=== PATIENT | female | born 1985 | race African-American/Black ===

== ENCOUNTER 2016-05-06 18:31 | Emergency (ER) | payer OTHER ==
[2016-05-06 18:38] VITALS: BP 116/77; PULSE 93; RESP 18; TEMP 97
[2016-05-06] MEDS ORDERED: NALOXONE 0.4 MG/ML 1 ML VIAL IV STA (19:09)
[2016-05-06] MEDS ORDERED: SODIUM CHLORIDE 0.9% 1,000 ML IV STA (19:09)
--- NOTE | 2016-05-06 19:11 | ED ---
General Adult HPI - General Chief complaint: Recheck/Abnormal Lab/Rx Stated complaint: UNABLE TO LIFT ARMS OR FEEL AFTER DONATING PLASMA Time Seen by Provider: 05/06/16 18:47 Source: patient, RN notes reviewed Mode of arrival: wheelchair Limitations: no limitations - History of Present Illness Initial comments: Patient is a 31-year-old female with chief complaint of unable to lift bilateral arms after donating plasma today. Patient reports that after she donated plasma she took one [place] and 1 Ativan as she was feeling that she is having a toothache. Patient reports that after she took her Ativan and [place] she fell asleep any praying position at the edge of her bed. Patient reports that she was asleep for approximately 15 minutes. She states that after that she feels that she is unable to lift her arms. She does have a history of that , after an overdose in 2015. Patient states that she's had no other drug or alcohol use. - Related Data Home Medications Medication Instructions Recorded Confirmed Albuterol Inhaler [Ventolin Hfa 1 - 2 puff INHALATION RT-Q6H PRN 12/14/15 Inhaler] Baclofen [Baclofen] 10 mg PO BID 12/14/15 05/06/16 Gabapentin [Gabapentin] 100 mg PO TID 12/14/15 05/06/16 traMADol HCL [Tramadol HCl] 50 mg PO BID 12/14/15 05/06/16 ALPRAZolam [Xanax] 1 mg PO DAILY PRN 05/06/16 05/06/16 HYDROcodone/APAP 5-325MG [[place] 1 tab PO Q6H PRN 05/06/16 05/06/16 5-325] Allergies Allergy/AdvReac Type Severity Reaction Status Date / Time No Known Allergies Allergy Verified 05/06/16 19:15 Review of Systems ROS Statement: Those systems with pertinent positive or pertinent negative responses have been documented in the HPI. ROS Other: All systems not noted in ROS Statement are negative. Past Medical History Past Medical History: Asthma, COPD, GERD/Reflux Additional Past Medical History / Comment(s): over dose coma, respiratory arrest , aspiration into lower respiratory tract, cerebral anoxic injury, rhabdomylosis , hypotension, cardiac arrest, drug overdose, sepsis syndrome. Other HX: low back pain, constipation, emphysema, skin issues at times with rashes/boils. History of Any Multi-Drug Resistant Organisms: None Reported Past Surgical History: Unable to Obtain, Section, Hysterectomy Additional Past Surgical History / Comment(s): 01/27/15 colonoscopy. Past Anesthesia/Blood Transfusion Reactions: No Reported Reaction Past Psychological History: Anxiety, Bipolar, Depression Additional Psychological History / Comment(s): Pt resides with her spouse and 2 children ages 2 and 8 yrs. She is normally independent. Smoking Status: Former smoker Past Alcohol Use History: None Reported Additional Past Alcohol Use History / Comment(s): Spouse states pt began smoking about age 15 yrs and is about 1/2 ppd smoker. She quit smoking 2 years ago. She denies any street drug use. She lives at home with HER-2 children. She is on disability. No animals in the home. Past Drug Use History: None Reported Additional Drug Use History / Comment(s): Spouse denies pt uses any street drugs. Please see above section. - Past Family History Mother Family Medical History: Osteoarthritis (OA) Additional Family Medical History / Comment(s): Mother has recently had total knee replacement. General Exam - General Exam Comments Initial Comments: Patient is a 31-year-old female. Limitations: no limitations General appearance: alert, in no apparent distress Head exam: Present: atraumatic, normocephalic, normal inspection Eye exam: Present: normal appearance, EOMI. Absent: PERRL (Patient's pupils are very pinpoint.), scleral icterus, conjunctival injection, periorbital swelling ENT exam: Present: normal exam, mucous membranes moist Neck exam: Present: normal inspection. Absent: tenderness, meningismus, lymphadenopathy Respiratory exam: Present: normal lung sounds bilaterally. Absent: respiratory distress, wheezes, rales, rhonchi, stridor Cardiovascular Exam: Present: regular rate, normal rhythm, normal heart sounds. Absent: systolic murmur, diastolic murmur, rubs, gallop, clicks GI/Abdominal exam: Present: soft, normal bowel sounds. Absent: distended, tenderness, guarding, rebound, rigid Extremities exam: Present: normal inspection, full ROM, normal capillary refill. Absent: tenderness, pedal edema, joint swelling, calf tenderness Back exam: Present: normal inspection Neurological exam: Present: alert, oriented X3, CN II-XII intact Psychiatric exam: Present: normal affect, normal mood Skin exam: Present: warm, dry, intact, normal color. Absent: rash Course Vital Signs 05/06/16 18:34 Temperature 97.0 F L Pulse Rate 93 Respiratory 18 Rate Blood Pressure 116/77 O2 Sat by Pulse 98 Oximetry Medical Decision Making - Medical Decision Making Patient is a 31-year-old [employer] chief complaint of unable to lift her arms completely. However when patient was instructed as able to visualize that she is able to lift her arms. Patient reports that this all occurred after she took one [place] and 1 Ativan at home. Patient's pupils were extremely pinpoint. She was alert and oriented 3. Patient's mother was originally the patient when I evaluated her. According to nursing staff patient mother got in a fight as patient's mother is convinced that she overdosed her medications. She states that that that is not true. Patient's mother didn't of leaving and patient become extremely irate. Patient was crying and upset that her mother left her. Lab work was initially obtained and patient did not give a urine sample for us. Labwork shows a mild leukocytosis. No other acute changes that we can see at this time. Patient did elope after trying to eat a hold of her mother. Patient removed her IV and left without telling staff. - Lab Data Result diagrams: 05/06/16 19:00 05/06/16 19:00 Lab Results 05/06/16 05/06/16 Range/Units 19:00 19:00 WBC 12.4 H (3.8-10.6) k/uL RBC 5.61 H (3.80-5.40) m/uL Hgb 17.0 H (11.4-16.0) gm/dL Hct 53.9 H (34.0-46.0) % MCV 96.1 (80.0-100.0) fL MCH 30.4 (25.0-35.0) pg MCHC 31.6 (31.0-37.0) g/dL RDW 12.9 (11.5-15.5) % Plt Count 216 (150-450) k/uL Neutrophils % (Manual) 47.0 % Lymphocytes % (Manual) 44.0 % Monocytes % (Manual) 7.0 % Eosinophils % (Manual) 2.0 % Neutrophils # (Manual) 5.8 (1.3-7.7) k/uL Lymphocytes # (Manual) 5.5 H (1.0-4.8) k/uL Monocytes # (Manual) 0.9 (0-1.0) k/uL Eosinophils # (Manual) 0.2 (0-0.7) k/uL Nucleated RBCs 0 (0-0) /100 WBC Manual Slide Review Performed Large Platelets Present RBC Morphology Normal Sodium 142 (137-145) mmol/L Potassium 4.4 (3.5-5.1) mmol/L Chloride 104 (98-107) mmol/L Carbon Dioxide 27 (22-30) mmol/L Anion Gap 11 mmol/L BUN 8 (7-17) mg/dL Creatinine 1.22 H (0.52-1.04) mg/dL Est GFR (MDRD) Af Amer >60 (>60 ml/min/1.73 sqM) Est GFR (MDRD) Non-Af 51 (>60 ml/min/1.73 sqM) Glucose 105 H (74-99) mg/dL Calcium 9.9 (8.4-10.2) mg/dL Total Bilirubin 0.5 (0.2-1.3) mg/dL AST 16 (14-36) U/L ALT 20 (9-52) U/L Alkaline Phosphatase 63 (38-126) U/L Total Protein 7.6 (6.3-8.2) g/dL Albumin 4.4 (3.5-5.0) g/dL Salicylates <1.0 mg/dL Acetaminophen <10.0 ug/mL Serum Alcohol <10 mg/dL Disposition Clinical Impression: Drug intoxication Disposition: Left Against Medical Advice Condition: Stable Time of Disposition: 20:00
[2016-05-06 19:23] LABS: CH 30.2; CHCM 31.5; HCT 53.9 % (34.0-46.0); HDW 2.09; MCH 30.4 pg (25.0-35.0); MCHC 31.6 g/dL (31.0-37.0); MCV 96.1 fL (80.0-100.0); Mean Platelet Volume 8.5; RBC 5.61 m/uL (3.80-5.40); RDW 12.9 % (11.5-15.5); WBC 12.4 k/uL (3.8-10.6); WBC (Perox) 11.51
[2016-05-06 19:32] LABS: ALT 20 U/L (9-52); AST 16 U/L (14-36); Acetaminophen <10.0 ug/mL; Alcohol <10 mg/dL; Alkaline Phosphatase 63 U/L (38-126); Anion Gap 11 mmol/L; Blood Urea Nitrogen 8 mg/dL (7-17); Calcium 9.9 mg/dL (8.4-10.2); Carbon Dioxide 27 mmol/L (22-30); Chloride 104 mmol/L (98-107); Glucose 105 mg/dL (74-99); Non-African American GFR(MDRD) 51 (>60 ml/min/1.73 sqM); Potassium 4.4 mmol/L (3.5-5.1); Salicylate <1.0 mg/dL; Sodium 142 mmol/L (137-145); Total Bilirubin 0.5 mg/dL (0.2-1.3); Total Protein 7.6 g/dL (6.3-8.2)
[2016-05-06 19:34] LABS: Add Differential Manual Differential
[2016-05-06 19:38] LABS: Nucleated Red Blood Cells 0 /100 WBC (0-0); Total Cells Counted 100
[2016-05-06 19:39] LABS: Large Platelets Present; Manual Review Performed; RBC Morphology Normal
[2016-05-07 03:54] LABS: Glucose,Whole Blood 171 mg/dL (75-99)
== END 2016-05-06 20:25 | disposition left against medical advice (07) ==
LOC: EC 18:31
DX: R29.898 Other symptoms and signs involving the musculoskeletal system (principal); T42.4X5A Adverse effect of benzodiazepines, initial encounter; T40.2X5A Adverse effect of other opioids, initial encounter; F41.9 Anxiety disorder, unspecified; Z79.891 Long term (current) use of opiate analgesic; Z79.899 Other long term (current) drug therapy; Z87.891 Personal history of nicotine dependence
CPT/HCPCS: 36415; 80053; 85025; 83520 ×2; 80320; 99284; 96374; 96361; J2310

== ENCOUNTER 2016-08-24 15:52 | Emergency (ER) | payer OTHER ==
[2016-08-24 16:12] VITALS: RESP 18
--- NOTE | 2016-08-24 16:27 | ED ---
General Adult HPI - General Chief complaint: Recheck/Abnormal Lab/Rx Stated complaint: Female Time Seen by Provider: 08/24/16 16:07 Source: patient, RN notes reviewed Mode of arrival: ambulatory Limitations: no limitations - History of Present Illness Initial comments: Patient 31-year-old female who presents emergency room today with a chief complaint of increased burning and tingling sensation with urination over the last 2 days. Patient does admit that she's had a "strange" type feeling over the last 4 days. She does admit that the burning started yesterday. Does admit that she wears a possible STDs she's had recent protected sex. Patient denies any vaginal bleeding or discharge. She denies any other complaints or associated symptoms at this time. Patient denies any recent fever, chills, shortness of breath, chest pain, back pain, abdominal pain, nausea or vomiting, numbness or tingling, hematuria, constipation or diarrhea, headaches or visual changes, or any other complaints. - Related Data Home Medications Medication Instructions Recorded Confirmed traMADol HCL [Tramadol HCl] 50 mg PO BID PRN 12/14/15 08/24/16 Previous Rx's Medication Instructions Recorded Phenazopyridine [Pyridium] 100 mg PO TID 3 Days 08/24/16 Allergies Allergy/AdvReac Type Severity Reaction Status Date / Time No Known Allergies Allergy Verified 08/24/16 16:41 Review of Systems ROS Statement: Those systems with pertinent positive or pertinent negative responses have been documented in the HPI. ROS Other: All systems not noted in ROS Statement are negative. Past Medical History Past Medical History: Asthma, COPD, GERD/Reflux Additional Past Medical History / Comment(s): over dose coma, respiratory arrest , aspiration into lower respiratory tract, cerebral anoxic injury, rhabdomylosis , hypotension, cardiac arrest, drug overdose, sepsis syndrome. Other HX: low back pain, constipation, emphysema, skin issues at times with rashes/boils. History of Any Multi-Drug Resistant Organisms: None Reported Past Surgical History: Section, Hysterectomy Additional Past Surgical History / Comment(s): 01/27/15 colonoscopy. Past Anesthesia/Blood Transfusion Reactions: No Reported Reaction Past Psychological History: Anxiety, Bipolar, Depression Additional Psychological History / Comment(s): Pt resides with her spouse and 2 children ages 2 and 8 yrs. She is normally independent. Smoking Status: Former smoker Past Alcohol Use History: None Reported Additional Past Alcohol Use History / Comment(s): Spouse states pt began smoking about age 15 yrs and is about 1/2 ppd smoker. She quit smoking 2 years ago. She denies any street drug use. She lives at home with HER-2 children. She is on disability. No animals in the home. Past Drug Use History: None Reported Additional Drug Use History / Comment(s): Spouse denies pt uses any street drugs. Please see above section. - Past Family History Mother Family Medical History: Osteoarthritis (OA) Additional Family Medical History / Comment(s): Mother has recently had total knee replacement. General Exam - General Exam Comments Initial Comments: General: The patient is awake and alert, in no distress, and does not appear acutely ill. Eye: Pupils are equal, round and reactive to light, extra-ocular movements are intact. No nystagmus. There is normal conjunctiva bilaterally. No signs of icterus. Ears, nose, mouth and throat: There are moist mucous membranes and no oral lesions. Neck: The neck is supple, there is no tenderness or JVD. Cardiovascular: There is a regular rate and rhythm. No murmur, rub or gallop is appreciated. Respiratory: Lungs are clear to auscultation, respirations are non-labored, breath sounds are equal. No wheezes, stridor, rales, or rhonchi. Gastrointestinal: Soft, non-distended, non-tender abdomen without masses or organomegaly noted. There is no rebound or guarding present. No CVA tenderness. Bowel sounds are unremarkable. Musculoskeletal: Normal ROM, no tenderness. Strength 5/5. Sensation intact. Pulses equal bilaterally 2+. Neurological: A&O x 3. CN II-XII intact, There are no obvious motor or sensory deficits. Coordination appears grossly intact. Speech is normal. Skin: Skin is warm and dry and no rashes or lesions are noted. Psychiatric: Cooperative, appropriate mood & affect, normal judgment. Limitations: no limitations Course Vital Signs 08/24/16 16:08 Temperature 98.5 F Pulse Rate 98 Respiratory 18 Rate Blood Pressure 157/70 O2 Sat by Pulse 100 Oximetry Medical Decision Making - Medical Decision Making This is urinalysis reviewed and shows no sign of infection. She does admit to burning sensation and some dysuria will be started on Pyridium. Was discussed about possible STDs. She does admit that she's had recent unprotected sex. She states was without her . At this time has been is at bedside. Was discussed about possible treatment for STDs. Patient states she plans on following up with the clinic. Exam performed here in the emergency room unremarkable. Cultures are pending. Patient advised that cultures will take 2 days come back. Advised no sexual contacts all symptoms have resolved. Advised follow-up with the clinic or [facility] for further evaluation if symptoms increase or worsen. Patient's declined any prophylactic treatment here in emergency room. Patient does not want to wait for Trichomonas test to come back. States she was be discharged she does need to go to work. - Lab Data Lab Results 08/24/16 08/24/16 Range/Units 16:12 16:12 Urine Color Yellow Urine Appearance Clear (Clear) Urine pH 7.0 (5.0-8.0) Ur Specific [place] 1.017 (1.001-1.035) Urine Protein Negative (Negative) Urine Glucose (UA) Negative (Negative) Urine Ketones Negative (Negative) Urine Blood Negative (Negative) Urine Nitrite Negative (Negative) Urine Bilirubin Negative (Negative) Urine Urobilinogen 2.0 (<2.0) mg/dL Ur Leukocyte Esterase Negative (Negative) Urine HCG, Qual Not Detected (Not Detectd) Disposition Clinical Impression: Dysuria Disposition: HOME SELF-CARE Condition: Stable Instructions: Dysuria (ED) Additional Instructions: Please follow-up with the health clinic as discussed along with [facility] if symptoms persist for further evaluation and testing. Please refrain from any sexual contact until al symptoms have resolved. Please return to emergency room if any symptoms increase worsen or for any other concerns. Prescriptions: Phenazopyridine [Pyridium] 100 mg PO TID 3 Days Referrals: None,Stated [Primary Care Provider] - 1-2 days Time of Disposition: 17:25
[2016-08-24 16:59] LABS: Appearance,Urine Clear (Clear); Bilirubin,Urine Negative (Negative); Glucose,Urine (UA) Negative (Negative); Ketones,Urine Negative (Negative); Leukocyte Esterase,Urine Negative (Negative); Nitrite,Urine Negative (Negative); Protein,Urine Negative (Negative); Specific Gravity,Urine 1.017 (1.001-1.035); UA Billing (MACRO vs. MICRO) CHEM
[2016-08-24 17:28] VITALS: BP 129/77; PULSE 87; TEMP 98
== END 2016-08-24 17:30 | disposition home or self-care (01) ==
LOC: EC 15:52
DX: R30.0 Dysuria (principal); Z87.891 Personal history of nicotine dependence
CPT/HCPCS: 81003; 81025; 87070; 87086; 87205; 87491; 87591; 87808; 99283

== ENCOUNTER 2017-08-19 17:05 | Emergency (ER) | payer OTHER ==
[2017-08-19] MEDS ORDERED: ONDANSETRON 4 MG/2 ML VIAL IVP STA (17:26)
[2017-08-19] MEDS ORDERED: PANTOPRAZOLE 40 MG/10 ML VIAL IVP STA (17:26)
[2017-08-19] MEDS ORDERED: SODIUM CHLORIDE 0.9% 2,000 ML IV STA (17:26)
--- NOTE | 2017-08-19 17:31 | ED ---
General Adult HPI - General Chief complaint: Nausea/Vomiting/Diarrhea Stated complaint: JELLY Time Seen by Provider: 08/19/17 17:19 Source: patient, RN notes reviewed, old records reviewed Mode of arrival: wheelchair Limitations: no limitations - History of Present Illness Initial comments: If complaint and history of present illness a 32-year-old female with complaint of nausea vomiting for 2 days. The patient reports she takes methadone every day for last time she used it is able to keep it down was 3 days ago. She vomited yesterday's dose. No diarrhea. Also sick in the house. Complains of not feeling well sweats with nausea and vomiting. - Related Data Home Medications Medication Instructions Recorded Confirmed traMADol HCL [Tramadol HCl] 50 mg PO BID PRN 12/14/15 08/24/16 Previous Rx's Medication Instructions Recorded Phenazopyridine [Pyridium] 100 mg PO TID 3 Days day 08/24/16 Ondansetron Odt [Zofran Odt] 4 mg PO Q8HR PRN #10 tab 08/19/17 Allergies Allergy/AdvReac Type Severity Reaction Status Date / Time No Known Allergies Allergy Verified 08/24/16 16:41 Review of Systems ROS Statement: Those systems with pertinent positive or pertinent negative responses have been documented in the HPI. Review of systems no complaint of headache or chest pain she has dry states she just anything she vomits rapidly. No blood in the vomit. No diarrhea. No complaint of pain. Patient is on methadone because she had been on [place] for right along. At time after delivering a baby over 4 years ago. Denies other drugs. All systems were reviewed past medical problems significant for COPD, GERD, surgeries include followed by hysterectomy. Family history not respiratory no known ALLERGIES. ROS Other: All systems not noted in ROS Statement are negative. Past Medical History Past Medical History: Asthma, COPD, GERD/Reflux Additional Past Medical History / Comment(s): over dose coma, respiratory arrest , aspiration into lower respiratory tract, cerebral anoxic injury, rhabdomylosis , hypotension, cardiac arrest, drug overdose, sepsis syndrome. Other HX: low back pain, constipation, emphysema, skin issues at times with rashes/boils. History of Any Multi-Drug Resistant Organisms: None Reported Past Surgical History: Section, Hysterectomy Additional Past Surgical History / Comment(s): 01/27/15 colonoscopy. Past Anesthesia/Blood Transfusion Reactions: No Reported Reaction Past Psychological History: Anxiety, Bipolar, Depression Smoking Status: Current every day smoker Past Alcohol Use History: None Reported Past Drug Use History: None Reported - Past Family History Mother Family Medical History: Osteoarthritis (OA) Additional Family Medical History / Comment(s): Mother has recently had total knee replacement. General Exam - General Exam Comments Initial Comments: General: The patient is awake and alert, complaining of nausea and vomiting for 2-1/2 days. Does not take her methadone since 3 days ago. Current vital signs temperature 99.2 pulse 74 respiratory rate 20 pulse ox on percent room air blood pressure 123/82 Ears, nose, mouth and throat: There are moist mucous membranes Neck: The neck is supple, Cardiovascular: There is a regular rate and rhythm. No murmur, rub or gallop is appreciated. Respiratory: Lungs are clear to auscultation, respirations are non-labored, breath sounds are equal. No wheezes, stridor, rales, or rhonchi. Gastrointestinal: No complaint of pain but nausea and vomiting for 2 days. No diarrhea. No blood in the vomit. Back: Denies back pain. Musculoskeletal: No peripheral edema Neurological: Denies any neuro deficits. Denies weakness. Skin: Skin is warm and dry and no rashes or lesions are noted. Psychiatric: Cooperative, Limitations: no limitations Course Vital Signs 08/19/17 17:15 Temperature 99.2 F Pulse Rate 74 Respiratory 20 Rate Blood Pressure 123/82 O2 Sat by Pulse 100 Oximetry Medical Decision Making - Medical Decision Making Medical decision making; to 32-year-old female who has not had her methadone for 3 days because of nausea and vomiting. She did vomit her methadone dose 3 days ago. She takes 50 mg daily and one dose. She receives this from a clinic in [place]. Labs show white count 16.9 hemoglobin 15 hematocrit of 49 with a potassium 3.8. BUN 9 creatinine 0.9 and GFR greater than 90. Glucose 100. Amylase lipase normal limits. The patient was hydrated with 2 L of fluid in emergency room given IV Protonix and Zofran with good results. The patient reports feeling much better now she will be given methadone 40 mg by mouth. She 'll be following up tomorrow with her program. She'll also taking Zofran as needed this evening. Told return emergency room as needed. - Lab Data Result diagrams: 08/19/17 17:38 08/19/17 17:38 Lab Results 08/19/17 08/19/17 Range/Units 17:38 17:38 WBC 16.9 H (3.8-10.6) k/uL RBC 5.34 (3.80-5.40) m/uL Hgb 15.8 (11.4-16.0) gm/dL Hct 49.1 H (34.0-46.0) % MCV 92.0 (80.0-100.0) fL MCH 29.5 (25.0-35.0) pg MCHC 32.1 (31.0-37.0) g/dL RDW 14.2 (11.5-15.5) % Plt Count 220 (150-450) k/uL Neutrophils % 85 % Lymphocytes % 8 % Monocytes % 5 % Eosinophils % 1 % Basophils % 0 % Neutrophils # 14.3 H (1.3-7.7) k/uL Lymphocytes # 1.3 (1.0-4.8) k/uL Monocytes # 0.9 (0-1.0) k/uL Eosinophils # 0.1 (0-0.7) k/uL Basophils # 0.0 (0-0.2) k/uL Sodium 145 (137-145) mmol/L Potassium 3.8 (3.5-5.1) mmol/L Chloride 106 (98-107) mmol/L Carbon Dioxide 27 (22-30) mmol/L Anion Gap 12 mmol/L BUN 9 (7-17) mg/dL Creatinine 0.90 (0.52-1.04) mg/dL Est GFR (CKD-EPI)AfAm >90 (>60 ml/min/1.73 sqM) Est GFR (CKD-EPI)NonAf 85 (>60 ml/min/1.73 sqM) Glucose 100 H (74-99) mg/dL Calcium 9.1 (8.4-10.2) mg/dL Total Bilirubin 0.5 (0.2-1.3) mg/dL AST 31 (14-36) U/L ALT 32 (9-52) U/L Alkaline Phosphatase 90 (38-126) U/L Total Protein 6.2 L (6.3-8.2) g/dL Albumin 3.6 (3.5-5.0) g/dL Amylase 46 (30-110) U/L Lipase 22 L (23-300) U/L Disposition Clinical Impression: Methadone withdrawal Narrative: Follow-up with your methadone clinic tomorrow and your family doctor. Advance your diet fluids and ice in easily digestible food. Use Zofran to control nausea. Return emergency room as needed Disposition: HOME SELF-CARE Condition: Fair Instructions: Acute Nausea and Vomiting (ED) Additional Instructions: Advance diet as directed use Zofran to control nausea vomiting. Follow-up with [facility] tomorrow. Follow-up family physician Prescriptions: Ondansetron Odt [Zofran Odt] 4 mg PO Q8HR PRN #10 tab PRN Reason: Nausea Is patient prescribed a controlled substance at d/c from ED?: No Referrals: Davide Kamara MD [Primary Care Provider] - 1-2 days Time of Disposition: 18:52
[2017-08-19 17:56] LABS: Basophils % (A) 0 %; Eosinophils # (A) 0.1 k/uL (0-0.7); Eosinophils % (A) 1 %; HCT 49.1 % (34.0-46.0); HGB 15.8 gm/dL (11.4-16.0); Lymphocytes # (A) 1.3 k/uL (1.0-4.8); Lymphocytes % (A) 8 %; MCH 29.5 pg (25.0-35.0); MCHC 32.1 g/dL (31.0-37.0); Mean Platelet Volume 8.1; Monocytes # (A) 0.9 k/uL (0-1.0); Monocytes % (A) 5 %; Neutrophils # (A) 14.3 k/uL (1.3-7.7); Neutrophils % (A) 85 %; Platelet Count 220 k/uL (150-450); RBC 5.34 m/uL (3.80-5.40); RDW 14.2 % (11.5-15.5); WBC 16.9 k/uL (3.8-10.6)
[2017-08-19 17:57] LABS: ALT 32 U/L (9-52); AST 31 U/L (14-36); Albumin 3.6 g/dL (3.5-5.0); Alkaline Phosphatase 90 U/L (38-126); Amylase 46 U/L (30-110); Anion Gap 12 mmol/L; Blood Urea Nitrogen 9 mg/dL (7-17); Calcium 9.1 mg/dL (8.4-10.2); Carbon Dioxide 27 mmol/L (22-30); Chloride 106 mmol/L (98-107); Glucose 100 mg/dL (74-99); Lipase 22 U/L (23-300); Potassium 3.8 mmol/L (3.5-5.1); Sodium 145 mmol/L (137-145); Total Bilirubin 0.5 mg/dL (0.2-1.3); Total Protein 6.2 g/dL (6.3-8.2)
[2017-08-19] MEDS ORDERED: METHADONE 10 MG TAB PO STA (18:45)
[2017-08-19 19:02] VITALS: BP 121/63; PULSE 63; RESP 16; TEMP 98.1
== END 2017-08-19 19:08 | disposition home or self-care (01) ==
LOC: EC 17:05
DX: F11.23 Opioid dependence with withdrawal (principal); F17.200 Nicotine dependence, unspecified, uncomplicated; Z86.74 Personal history of sudden cardiac arrest
CPT/HCPCS: 36415; 80053; 82150; 83690; 85025; 99284; 96374; 96375; 96361; J2405; S0109; C9113

== ENCOUNTER 2017-09-14 18:47 | Emergency (ER) | payer OTHER ==
[2017-09-14 19:02] VITALS: BP 149/102; PULSE 116; RESP 20; TEMP 98.8
--- NOTE | 2017-09-14 19:50 | ED ---
Medical Clearance HPI - General Chief complaint: Medical Clearance Stated complaint: Came from [facility] medication Time Seen by Provider: 09/14/17 19:38 Source: patient, RN notes reviewed Mode of arrival: ambulatory - History of Present Illness Initial comments: Patient's a 32-year-old female with no significant past medical history, presenting to the emergency room today in the custody of the [facility]. Patient was going through the intake process today. She admits that something dropped from the crack of her butt. She states it was a half a Percocet and she immediately picked it up putting her mouth and swallowed it. This was witnessed by [facility]. Patient denies any other complaints or symptoms. Patient denies any recent fever, chills, shortness of breath, chest pain, back pain, abdominal pain, nausea or vomiting, numbness or tingling , dysuria or hematuria, constipation or diarrhea, headaches or visual changes, or any other complaints. Home medications: Home Medications Medication Instructions Recorded Confirmed traMADol HCL [Tramadol HCl] 50 mg PO BID PRN 12/14/15 08/24/16 Previous Rx's Medication Instructions Recorded Phenazopyridine [Pyridium] 100 mg PO TID 3 Days day 08/24/16 Ondansetron Odt [Zofran Odt] 4 mg PO Q8HR PRN #10 tab 08/19/17 Allergies/Adverse reactions: Allergies Allergy/AdvReac Type Severity Reaction Status Date / Time No Known Allergies Allergy Verified 09/14/17 19:02 Review of Systems ROS Statement: Those systems with pertinent positive or pertinent negative responses have been documented in the HPI. ROS Other: All systems not noted in ROS Statement are negative. Past Medical History Past Medical History: Asthma, COPD, GERD/Reflux Additional Past Medical History / Comment(s): over dose coma, respiratory arrest , aspiration into lower respiratory tract, cerebral anoxic injury, rhabdomylosis , hypotension, cardiac arrest, drug overdose, sepsis syndrome. Other HX: low back pain, constipation, emphysema, skin issues at times with rashes/boils. History of Any Multi-Drug Resistant Organisms: None Reported Past Surgical History: Section, Hysterectomy Additional Past Surgical History / Comment(s): 01/27/15 colonoscopy. Past Anesthesia/Blood Transfusion Reactions: No Reported Reaction Past Psychological History: Anxiety, Bipolar, Depression Smoking Status: Current every day smoker Past Alcohol Use History: None Reported Past Drug Use History: None Reported - Past Family History Mother Family Medical History: Osteoarthritis (OA) Additional Family Medical History / Comment(s): Mother has recently had total knee replacement. General Exam - General Exam Comments Initial Comments: General: The patient is awake and alert, in no distress, and does not appear acutely ill. Eye: Pupils are equal, round and reactive to light, extra-ocular movements are intact. No nystagmus. There is normal conjunctiva bilaterally. No signs of icterus. Ears, nose, mouth and throat: There are moist mucous membranes and no oral lesions. Neck: The neck is supple, there is no tenderness or JVD. Cardiovascular: There is a regular rate and rhythm. No murmur, rub or gallop is appreciated. Respiratory: Lungs are clear to auscultation, respirations are non-labored, breath sounds are equal. No wheezes, stridor, rales, or rhonchi. Musculoskeletal: Normal ROM, no tenderness. Strength 5/5. Sensation intact. Neurological: A&O x 3. CN II-XII intact, There are no obvious motor or sensory deficits. Coordination appears grossly intact. Speech is normal. Skin: Skin is warm and dry and no rashes or lesions are noted. Limitations: no limitations Course Vital Signs 09/14/17 19:00 Temperature 98.8 F Pulse Rate 116 H Respiratory 20 Rate Blood Pressure 149/102 O2 Sat by Pulse 99 Oximetry Medical Decision Making - Medical Decision Making Patient was brought in by [facility] for an ingestion. Patient states it was a half a Percocet. Patient refusing any treatment here. Nursing staff attempted to get blood pressure patient became irate and screaming and yelling at staff. Unable to repeat vital signs as patient is uncooperative. Did attempt to try to do an x-ray to rule out any sharp or metallic type objects that patient may have ingested as this could cause internal damage to the patient. Patient refusing any x-rays stating that she only took a Percocet patient is alert and oriented. She denies any complaints. She will not cooperate for any x-rays or further evaluation. Patient will be discharged into the custody of the [facility] recommending further observation overnight. Case discussed with attending physician Dr. Freeman. Disposition Clinical Impression: Medical clearance for incarceration Disposition: OTHER INSTITUTION NOT DEFINED Condition: Stable Is patient prescribed a controlled substance at d/c from ED?: No Referrals: Davide Kamara MD [Primary Care Provider] - 1-2 days Time of Disposition: 20:07 (Released to the custody of [facility] ) - Out of Hospital Transfer - Req. Specs Out of Hospital Transfer - Requested Specifics: Other Non-Acute ([facility])
== END 2017-09-14 20:17 | disposition short-term general hospital (02) ==
LOC: EC 18:47
DX: Z02.89 Encounter for other administrative examinations (principal); F17.200 Nicotine dependence, unspecified, uncomplicated
CPT/HCPCS: 99284

== ENCOUNTER 2019-02-15 14:50 | Emergency (ER) | payer OTHER ==
[2019-02-15 15:01] VITALS: BP 126/83; PULSE 109; RESP 22; TEMP 99.4
[2019-02-15] MEDS ORDERED: KETOROLAC 60 MG/2 ML VIAL IM STA (15:18)
[2019-02-15] MEDS ORDERED: PENICILLIN V POTASSIUM 250 MG TAB PO STA (15:18)
--- NOTE | 2019-02-15 15:21 | ED ---
ENT HPI - General Chief complaint: Dental/Oral Stated complaint: Broken tooth Time Seen by Provider: 02/15/19 15:02 Source: patient Mode of arrival: ambulatory Limitations: no limitations - History of Present Illness Initial comments: Patient is a 34-year-old female presenting to emergency Department with complaints of a fractured tooth on her right upper side. Patient states she has a partial retainer that she uses and went to take it out yesterday when her tooth fractured. Patient states she's been having a severe amount of pain. Patient has been trying Tylenol Motrin without relief of symptoms. Patient states she was unable to get into a dentist today and now has to wait until Monday. Patient denies any fever, chills. Patient has no other complaints at this time. Upon arrival to the ER, vital signs are stable. - Related Data Home Medications Medication Instructions Recorded Confirmed traMADol HCL [Tramadol HCl] 50 mg PO BID PRN 12/14/15 08/24/16 Previous Rx's Medication Instructions Recorded Phenazopyridine [Pyridium] 100 mg PO TID 3 Days day 08/24/16 Ondansetron Odt [Zofran Odt] 4 mg PO Q8HR PRN #10 tab 08/19/17 Penicillin V Potassium [Pen Vee K] 500 mg PO QID 7 Days #28 tablet 02/15/19 Allergies Allergy/AdvReac Type Severity Reaction Status Date / Time No Known Allergies Allergy Verified 02/15/19 14:59 Review of Systems ROS Statement: Those systems with pertinent positive or pertinent negative responses have been documented in the HPI. ROS Other: All systems not noted in ROS Statement are negative. Past Medical History Past Medical History: Asthma, COPD, GERD/Reflux Additional Past Medical History / Comment(s): over dose coma, respiratory arrest, aspiration into lower respiratory tract, cerebral anoxic injury, rhabdomylosis, hypotension, cardiac arrest, drug overdose, sepsis syndrome. Other HX: low back pain, constipation, emphysema, skin issues at times with r ashes/boils. History of Any Multi-Drug Resistant Organisms: None Reported Past Surgical History: Section, Hysterectomy Additional Past Surgical History / Comment(s): 01/27/15 colonoscopy. Past Anesthesia/Blood Transfusion Reactions: No Reported Reaction Past Psychological History: Anxiety, Bipolar, Depression Smoking Status: Current every day smoker Past Alcohol Use History: None Reported Past Drug Use History: None Reported - Past Family History Mother Family Medical History: Osteoarthritis (OA) Additional Family Medical History / Comment(s): Mother has recently had total knee replacement. General Exam - General Exam Comments Initial Comments: GENERAL: Well-appearing, well-nourished and in no acute distress. HEAD: Atraumatic, normocephalic. EYES: Pupils equal round and reactive to light, extraocular movements intact, sclera anicteric, conjunctiva are normal. ENT: TMs normal, nares patent, oropharynx clear without exudates. Moist mucous membranes. She has multiple dental caries. Patient has a fractured tooth on the upper right side. Pain with palpation. NECK: Normal range of motion, supple without lymphadenopathy or JVD. LUNGS: Breath sounds clear to auscultation bilaterally and equal. No wheezes rales or rhonchi. HEART: Regular rate and rhythm without murmurs, rubs or gallops. EXTREMITIES: Normal range of motion, no pitting or edema. No clubbing or cyanosis. NEUROLOGICAL: Normal speech, normal gait. PSYCH: Normal mood, normal affect. SKIN: Warm, Dry, normal turgor, no rashes or lesions noted. Limitations: no limitations Course Vital Signs 02/15/19 14:57 Temperature 99.4 F Pulse Rate 109 H Respiratory 22 Rate Blood Pressure 126/83 O2 Sat by Pulse 97 Oximetry Medical Decision Making - Medical Decision Making Patient is a 34-year-old female presenting with a dental fracture and upper rig ht side. Vital signs are stable. Patient is in a severe amount of pain. Patient was unable to get into a dentist today. Patient will be given Toradol as well as a starter pack of Tylenol 3 for pain relief. Patient will also be started on penicillin VK to prevent infection. Patient is stable for discharge at this time and she is in agreement with this plan of care. Patient will follow up with her dentist on Monday morning. Return parameters were discussed with the patient she verbalized understanding. Case discussed with Dr. Batres. Disposition Clinical Impression: Fracture of tooth, Dental caries Disposition: HOME SELF-CARE Condition: Stable Instructions (If sedation given, give patient instructions): Toothache (ED) Additional Instructions: Please return to the Emergency Department if symptoms worsen or any other concerns. Take antibiotic as prescribed. May alternate the Tylenol #3 with Motrin for better pain control. Follow-up with dentist as soon as possible. Prescriptions: Penicillin V Potassium [Pen Vee K] 500 mg PO QID 7 Days #28 tablet Is patient prescribed a controlled substance at d/c from ED?: No Referrals: Davide Kamara MD [Primary Care Provider] - 1-2 days
[2019-02-15] MEDS ORDERED: ACET/COD 300 MG/30 MG STARTER PACK 6 TAB BTL PO STA (15:29)
== END 2019-02-15 15:39 | disposition home or self-care (01) ==
LOC: EC 14:50
DX: S02.5XXA Fracture of tooth (traumatic), initial encounter for closed fracture (principal); K02.9 Dental caries, unspecified; F17.200 Nicotine dependence, unspecified, uncomplicated; Z86.74 Personal history of sudden cardiac arrest; X58.XXXA Exposure to other specified factors, initial encounter
CPT/HCPCS: 96372; 99283

== ENCOUNTER 2019-10-13 10:07 | Emergency (ER) | payer OTHER ==
[2019-10-13 10:40] VITALS: BP 126/89; PULSE 116; RESP 18; TEMP 98.9
[2019-10-13] MEDS ORDERED: CLINDAMYCIN 150 MG CAP PO STA (11:22)
[2019-10-13] MEDS ORDERED: KETOROLAC 60 MG/2 ML VIAL IM STA (11:23)
--- NOTE | 2019-10-13 11:38 | ED ---
ENT HPI - General Chief complaint: Dental/Oral Stated complaint: dental pain Time Seen by Provider: 10/13/19 11:10 Source: patient Mode of arrival: ambulatory Limitations: no limitations - History of Present Illness Initial comments: Patient is a 34-year-old female presenting to emergency Department complaining of right-sided dental pain that started 4 days ago. Patient states she chipped her upper tooth on Monday evening and then went to her dentist first thing the next day. She was started on penicillin as well as Toradol for the discomfort. Patient states over the last 2 days the pain has been increasing and she can no longer to very well on the right side. She denies any fever, chills, nausea, vomiting. She states she tried calling her dentist office today but they were closed and not responding. Patient has no further complaints at this time. Patient denies being at this time. Upon arrival to the ER, patient was tachycardia however she was crying during triage. The rest of her vitals are normal, afebrile. - Related Data Home Medications Medication Instructions Recorded Confirmed traMADol HCL [Tramadol HCl] 50 mg PO BID PRN 12/14/15 08/24/16 Previous Rx's Medication Instructions Recorded Phenazopyridine [Pyridium] 100 mg PO TID 3 Days day 08/24/16 Ondansetron Odt [Zofran Odt] 4 mg PO Q8HR PRN #10 tab 08/19/17 Penicillin V Potassium [Pen Vee K] 500 mg PO QID 7 Days #28 tablet 02/15/19 Clindamycin HCl 300 mg PO Q6HR 7 Days #28 cap 10/13/19 Hydrocodone/Acetaminophen [[place] 1 tab PO Q6HR PRN #10 tab 10/13/19 5-325] Allergies Allergy/AdvReac Type Severity Reaction Status Date / Time No Known Allergies Allergy Verified 10/13/19 10:39 Review of Systems ROS Statement: Those systems with pertinent positive or pertinent negative responses have been documented in the HPI. ROS Other: All systems not noted in ROS Statement are negative. Past Medical History Past Medical History: Asthma, COPD, GERD/Reflux Additional Past Medical History / Comment(s): over dose coma, respiratory arrest, aspiration into lower respiratory tract, cerebral anoxic injury, rha bdomylosis, hypotension, cardiac arrest, drug overdose, sepsis syndrome. Other HX: low back pain, constipation, emphysema, skin issues at times with rashes/boils. History of Any Multi-Drug Resistant Organisms: None Reported Past Surgical History: Section, Hysterectomy Additional Past Surgical History / Comment(s): 01/27/15 colonoscopy. Past Anesthesia/Blood Transfusion Reactions: No Reported Reaction Past Psychological History: Anxiety, Bipolar, Depression Smoking Status: Current every day smoker Past Alcohol Use History: None Reported Past Drug Use History: None Reported - Past Family History Mother Family Medical History: Osteoarthritis (OA) Additional Family Medical History / Comment(s): Mother has recently had total knee replacement. General Exam - General Exam Comments Initial Comments: GENERAL: Patient is well-developed and well-nourished. Patient is nontoxic and in no acute distress, but is crying during exam. HEAD: Atraumatic, normocephalic. EYES: Pupils equal round and reactive to light, extraocular movements intact, sclera anicteric, conjunctiva are normal. Eyelids were unremarkable. ENT: TMs normal, nares patent, oropharynx clear without exudates. Moist mucous membranes. Patient does have a fractured tooth, #6 and also some decay of the adjoining teeth. There is no visible dental abscess seen. There is pain with palpation of the gumline as well as some erythema. NECK: Normal range of motion, supple without lymphadenopathy or JVD. LUNGS: Unlabored respirations. Breath sounds clear to auscultation bilaterally and equal. No wheezes rales or rhonchi. HEART: Regular rate and rhythm without murmurs, rubs or gallops. ABDOMEN: Soft, nontender, normoactive bowel sounds. No guarding, no rebound. No masses appreciated. : Deferred MUSCULOSKELETAL: Normal extremities with adequate strength and normal range of motion, no pitting or edema. No clubbing or cyanosis. NEUROLOGICAL: Normal speech, normal gait. Symmetrical smile. PSYCH: Normal mood, normal affect. SKIN: Warm, Dry, normal turgor, no rashes or lesions noted. Limitations: no limitations Course Vital Signs 10/13/19 10:37 Temperature 98.9 F Pulse Rate 116 H Respiratory 18 Rate Blood Pressure 126/89 O2 Sat by Pulse 97 Oximetry Medical Decision Making - Medical Decision Making Patient is a 34-year-old female here for right-sided dental pain 4 days. She did see her dentist who prescribed her penicillin as well as Toradol the states the pain has been increasing. Her vitals are stable upon arrival, she was crying during the exam. There is no visible dental abscess seen. Patient will be started on clindamycin, given Toradol the ER. I will give her a short prescription for [place] until she can see her dentist. Patient is agreement with this plan of care. She is stable for discharge. Return parameters were discussed with the patient she verbalized understanding. Case discussed with Dr. Navas. Disposition Clinical Impression: Dental caries, Fracture of tooth, Pain, dental Disposition: HOME SELF-CARE Condition: Stable Instructions (If sedation given, give patient instructions): Toothache (ED) Additional Instructions: Please return to the Emergency Department if symptoms worsen or any other concerns. Take antibiotic as prescribed. Follow-up with dentist SB. Prescriptions: Clindamycin HCl 300 mg PO Q6HR 7 Days #28 cap Hydrocodone/Acetaminophen [[place] 5-325] 1 tab PO Q6HR PRN #10 tab PRN Reason: Pain Is patient prescribed a controlled substance at d/c from ED?: Yes When asked, does pt state using other controlled substances?: No If prescribed controlled substance>3 days was MAPS reviewed?: Prescribed <3 Days If opioid is for acute pain is fill amount 7 days or less?: Yes If Rx opioid, was Start Talking consent form obtained?: Yes Referrals: Davide Kamara MD [Primary Care Provider] - 1-2 days
== END 2019-10-13 12:04 | disposition home or self-care (01) ==
LOC: EC 10:07
DX: S02.5XXA Fracture of tooth (traumatic), initial encounter for closed fracture (principal); K02.9 Dental caries, unspecified; F41.9 Anxiety disorder, unspecified; F32.9 Major depressive disorder, single episode, unspecified; M54.5 Low back pain; F17.200 Nicotine dependence, unspecified, uncomplicated; X58.XXXA Exposure to other specified factors, initial encounter
CPT/HCPCS: 99282; 96372; J1885

== ENCOUNTER 2020-01-20 16:53 | Emergency (ER) | payer OTHER ==
[2020-01-20 17:10] VITALS: BP 149/94; PULSE 122; RESP 18; TEMP 97.6
--- NOTE | 2020-01-20 17:41 | ED ---
Recheck HPI - General Chief Complaint: Recheck/Abnormal Lab/Rx Stated Complaint: HIV Test Time Seen by Provider: 01/20/20 17:25 Source: patient, RN notes reviewed Mode of arrival: ambulatory Limitations: no limitations - History of Present Illness Initial Comments: 34-year-old female presents emergency Department chief complaint of wanting HIV testing. Patient states that she received a text from another person stating that she was having intercourse with patient's . Patient states that she was informed the female was positive for HIV.. Patient has no history of a HIV or hepatitis. She denies any IV drug use. - Related Data Home Medications Medication Instructions Recorded Confirmed traMADol HCL [Tramadol HCl] 50 mg PO BID PRN 12/14/15 08/24/16 Previous Rx's Medication Instructions Recorded Phenazopyridine [Pyridium] 100 mg PO TID 3 Days day 08/24/16 Ondansetron Odt [Zofran Odt] 4 mg PO Q8HR PRN #10 tab 08/19/17 Penicillin V Potassium [Pen Vee K] 500 mg PO QID 7 Days #28 tablet 02/15/19 Clindamycin HCl 300 mg PO Q6HR 7 Days #28 cap 10/13/19 Hydrocodone/Acetaminophen [[place] 1 tab PO Q6HR PRN #10 tab 10/13/19 5-325] Allergies Allergy/AdvReac Type Severity Reaction Status Date / Time No Known Allergies Allergy Verified 01/20/20 17:10 Review of Systems ROS Statement: Those systems with pertinent positive or pertinent negative responses have been documented in the HPI. ROS Other: All systems not noted in ROS Statement are negative. Past Medical History Past Medical History: Asthma, COPD, GERD/Reflux Additional Past Medical History / Comment(s): over dose coma, respiratory arrest, aspiration into lower respiratory tract, cerebral anoxic injury, rhabdomylosis, hypotension, cardiac arrest, drug overdose, sepsis syndrome. Other HX: low back pain, constipation, emphysema, skin issues at times with rashes/boils. History of Any Multi-Drug Resistant Organisms: None Reported Past Surgical History: Section, Hysterectomy Additional Past Surgical History / Comment(s): 01/27/15 colonoscopy. Past Anesthesia/Blood Transfusion Reactions: No Reported Reaction Past Psychological History: Anxiety, Bipolar, Depression Smoking Status: Current every day smoker Past Alcohol Use History: None Reported Past Drug Use History: None Reported - Past Family History Mother Family Medical History: Osteoarthritis (OA) Additional Family Medical History / Comment(s): Mother has recently had total knee replacement. General Exam Limitations: no limitations General appearance: alert, in no apparent distress Head exam: Present: atraumatic, normocephalic, normal inspection Respiratory exam: Present: normal lung sounds bilaterally. Absent: respiratory distress, wheezes, rales, rhonchi, stridor Cardiovascular Exam: Present: regular rate, normal rhythm, normal heart sounds. Absent: systolic murmur, diastolic murmur, rubs, gallop, clicks Course Vital Signs 01/20/20 17:08 Temperature 97.6 F Pulse Rate 122 H Respiratory 18 Rate Blood Pressure 149/94 O2 Sat by Pulse 100 Oximetry Medical Decision Making - Medical Decision Making HIV testing was ordered patient will follow-up with the results. Patient requested no other testing. Disposition Clinical Impression: Encounter for HIV (human immunodeficiency virus) test Disposition: HOME SELF-CARE Condition: Stable Instructions (If sedation given, give patient instructions): HIV Transmission (ED) Additional Instructions: Please return to the Emergency Department if symptoms worsen or any other concerns. Is patient prescribed a controlled substance at d/c from ED?: No Referrals: Davide Kamara MD [Primary Care Provider] - 1-2 days Time of Disposition: 17:41
[2020-01-21 02:40] LABS: HIV 2 AB Non-Reactive (Non-Reactive); HIV AB P24 Non-Reactive (Non-Reactive); HIV P24 AG Non-Reactive (Non-Reactive)
== END 2020-01-20 18:24 | disposition home or self-care (01) ==
LOC: EC 16:53
DX: Z11.4 Encounter for screening for human immunodeficiency virus [HIV] (principal); M54.5 Low back pain; F41.9 Anxiety disorder, unspecified; F32.9 Major depressive disorder, single episode, unspecified; F17.200 Nicotine dependence, unspecified, uncomplicated
CPT/HCPCS: 36415; 87390; 99283

== ENCOUNTER 2021-08-16 06:12 | Emergency (ER) | payer OTHER ==
[2021-08-16 06:27] VITALS: BP 138/81; PULSE 90; RESP 19; TEMP 98.1
--- NOTE | 2021-08-16 07:08 | ED ---
General Adult HPI - General Chief complaint: Recheck/Abnormal Lab/Rx Stated complaint: Flu-like symptoms Time Seen by Provider: 08/16/21 06:33 Source: patient, RN notes reviewed Mode of arrival: ambulatory Limitations: no limitations - History of Present Illness Initial comments: This a 36-year-old female presents emergency Department with chief complaint of needing medication. Patient is on daily left thumb states her normal doses 120 mg. She does have via [facility] [place] and doses daily. Patient states that her sister unexpectedly which she did have arrangement for dosing in [place]. She states that she received his flu back late Monday in which she missed her dosing for Monday and was closed yesterday. Patient states she is with drawing. She states when she goes back tomorrow she is restarted 30 mg because she missed more than 2 days. Patient denies any other associated complaints. Patient states she does have nausea, diarrhea, withdrawal symptoms. - Related Data Home Medications Medication Instructions Recorded Confirmed traMADol HCL [Tramadol HCl] 50 mg PO BID PRN 12/14/15 08/24/16 Previous Rx's Medication Instructions Recorded Phenazopyridine [Pyridium] 100 mg PO TID 3 Days day 08/24/16 Ondansetron Odt [Zofran Odt] 4 mg PO Q8HR PRN #10 tab 08/19/17 Penicillin V Potassium [Pen Vee K] 500 mg PO QID 7 Days #28 tablet 02/15/19 Clindamycin HCl 300 mg PO Q6HR 7 Days #28 cap 10/13/19 Hydrocodone/Acetaminophen [[place] 1 tab PO Q6HR PRN #10 tab 10/13/19 5-325] Allergies Allergy/AdvReac Type Severity Reaction Status Date / Time No Known Allergies Allergy Verified 08/16/21 06:27 Review of Systems ROS Statement: Those systems with pertinent positive or pertinent negative responses have been documented in the HPI. ROS Other: All systems not noted in ROS Statement are negative. Past Medical History Past Medical History: Asthma, COPD, GERD/Reflux Additional Past Medical History / Comment(s): over dose coma, respiratory arrest, aspiration into lower respiratory tract, cerebral anoxic injury, rhabdomylosis, hypotension, cardiac arrest, drug overdose, sepsis syndrome. Other HX: low back pain, constipation, emphysema, skin issues at times with rashes/boils. History of Any Multi-Drug Resistant Organisms: None Reported Past Surgical History: Section, Hysterectomy Additional Past Surgical History / Comment(s): 01/27/15 colonoscopy. Past Anesthesia/Blood Transfusion Reactions: No Reported Reaction Past Psychological History: Anxiety, Bipolar, Depression Smoking Status: Current every day smoker Past Alcohol Use History: None Reported Past Drug Use History: Methamphetamine - Past Family History Mother Family Medical History: Osteoarthritis (OA) Additional Family Medical History / Comment(s): Mother has recently had total knee replacement. General Exam General appearance: alert, in no apparent distress Head exam: Present: atraumatic, normocephalic, normal inspection Eye exam: Present: normal appearance, PERRL, EOMI. Absent: scleral icterus, conjunctival injection, periorbital swelling ENT exam: Present: normal exam, normal oropharynx, mucous membranes moist Neck exam: Present: normal inspection, full ROM. Absent: tenderness, meningismus, lymphadenopathy Respiratory exam: Present: normal lung sounds bilaterally. Absent: respiratory distress, wheezes, rales, rhonchi, stridor Cardiovascular Exam: Present: regular rate, normal rhythm, normal heart sounds. Absent: systolic murmur, diastolic murmur, rubs, gallop, clicks Course Vital Signs 08/16/21 06:23 Temperature 98.1 F Pulse Rate 90 Respiratory 19 Rate Blood Pressure 138/81 O2 Sat by Pulse 100 Oximetry Medical Decision Making - Medical Decision Making Patient be given 15 mg dose. Patient will follow-up with her scheduled time tomorrow she is return for any worsening change in symptoms. Disposition Clinical Impression: Methadone maintenance therapy patient, Methadone withdrawal Disposition: HOME SELF-CARE Condition: Stable Instructions (If sedation given, give patient instructions): Methadone (By mouth) Additional Instructions: Please return to the Emergency Department if symptoms worsen or any other concerns. Is patient prescribed a controlled substance at d/c from ED?: No Referrals: None,Stated [Primary Care Provider] - 1-2 days Time of Disposition: 07:08
[2021-08-16] MEDS ORDERED: METHADONE 5 MG TAB PO ONE (07:30)
== END 2021-08-16 07:38 | disposition home or self-care (01) ==
LOC: EC 06:12
DX: F11.23 Opioid dependence with withdrawal (principal); J43.9 Emphysema, unspecified; K21.9 Gastro-esophageal reflux disease without esophagitis; F17.200 Nicotine dependence, unspecified, uncomplicated; F31.9 Bipolar disorder, unspecified; F41.9 Anxiety disorder, unspecified; Z79.899 Other long term (current) drug therapy
CPT/HCPCS: 99283; S0109

== ENCOUNTER 2023-06-10 15:57 | Emergency (ER) | payer OTHER ==
--- NOTE | 2023-06-10 16:42 | ED ---
General Adult HPI - General Chief complaint: Nausea/Vomiting/Diarrhea Stated complaint: flu symptoms Time Seen by Provider: 06/10/23 16:27 Source: patient Mode of arrival: ambulatory Limitations: no limitations - History of Present Illness Initial comments: This patient is a 38-year-old woman who states that she is methadone maintenance therapy (75mg/day) for opioid addiction, and complains of having nausea, vomiting, diarrhea. She is also having bodyaches. The patient states that due to transportation issues, she has not been able to get to the clinic for 2 days now. She states that she is having withdrawal symptoms that include nausea, vomiting, diarrhea, sweats, body aches. She has not noted fevers. She has not had hematemesis or bloody/dark tarry stools. Onset/Timin -: days(s) Consistency: constant Improves with: none Worsens with: none Associated Symptoms: malaise Treatments Prior to Arrival: none - Related Data Home Medications Medication Instructions Recorded Confirmed traMADol HCL [Tramadol HCl] 50 mg PO BID PRN 12/14/15 08/24/16 Previous Rx's Medication Instructions Recorded Phenazopyridine [Pyridium] 100 mg PO TID 3 Days day 08/24/16 Ondansetron Odt [Zofran Odt] 4 mg PO Q8HR PRN #10 tab 08/19/17 Penicillin V Potassium [Pen Vee K] 500 mg PO QID 7 Days #28 tablet 02/15/19 Hydrocodone/Acetaminophen [[employer] 1 tab PO Q6HR PRN #10 tab 10/13/19 5-325] clindamycin HCL [Clindamycin HCl] 300 mg PO Q6HR 7 Days #28 cap 10/13/19 Allergies Allergy/AdvReac Type Severity Reaction Status Date / Time No Known Allergies Allergy Verified 08/16/21 06:27 Review of Systems ROS Statement: Those systems with pertinent positive or pertinent negative responses have been documented in the HPI. ROS Other: All systems not noted in ROS Statement are negative. Constitutional: Denies: fever, chills, weakness Respiratory: Denies: cough, dyspnea Cardiovascular: Denies: chest pain, palpitations Gastrointestinal: Reports: nausea, vomiting, diarrhea. Denies: hematemesis, melena, hematochezia Genitourinary: Denies: dysuria, hematuria Musculoskeletal: Reports: myalgia. Denies: back pain Skin: Denies: rash Neurological: Denies: headache, weakness Psychiatric: Denies: suicidal thoughts Past Medical History Past Medical History: Asthma, COPD, GERD/Reflux Additional Past Medical History / Comment(s): over dose coma, respiratory arrest, aspiration into lower respiratory tract, cerebral anoxic injury, rhabdomylosis, hypotension, cardiac arrest, drug overdose, sepsis syndrome. Other HX: low back pain, constipation, emphysema, skin issues at times with rashes/boils. History of Any Multi-Drug Resistant Organisms: None Reported Past Surgical History: Section, Hysterectomy Additional Past Surgical History / Comment(s): 01/27/15 colonoscopy. Past Anesthesia/Blood Transfusion Reactions: No Reported Reaction Past Psychological History: Anxiety, Bipolar, Depression Smoking Status: Current every day smoker Past Alcohol Use History: None Reported Past Drug Use History: Methamphetamine - Past Family History Mother Family Medical History: Osteoarthritis (OA) Additional Family Medical History / Comment(s): Mother has recently had total knee replacement. General Exam Limitations: no limitations General appearance: alert, in no apparent distress Head exam: Present: atraumatic, normocephalic Eye exam: Present: normal appearance. Absent: scleral icterus, conjunctival injection Neck exam: Present: normal inspection Respiratory exam: Present: normal lung sounds bilaterally. Absent: respiratory distress, wheezes, rales, rhonchi, stridor Cardiovascular Exam: Present: regular rate, normal rhythm, normal heart sounds. Absent: systolic murmur, diastolic murmur, rubs, gallop GI/Abdominal exam: Present: soft. Absent: distended, tenderness, guarding, rebound, rigid, mass Extremities exam: Present: normal inspection, normal capillary refill. Absent: pedal edema, calf tenderness Back exam: Present: normal inspection. Absent: CVA tenderness (R), CVA tenderness (L) Neurological exam: Present: alert Skin exam: Present: warm, intact, normal color, diaphoretic. Absent: rash Course Vital Signs 06/10/23 06/10/23 16:23 18:34 Temperature 98.4 F Pulse Rate 120 H 78 Respiratory 16 20 Rate Blood Pressure 138/81 136/87 O2 Sat by Pulse 99 99 Oximetry Medical Decision Making - Medical Decision Making Was pt. sent in by a medical professional or institution (, PA, GALLERY HOST, urgent care, hospital, or fdc...) When possible be specific @ -[No] Did you speak to anyone other than the patient for history (EMS, parent, family, police, friend...)? What history was obtained from this source @ -[No] Did you review nursing and triage notes (agree or disagree)? Why? @ -[I reviewed and agree with nursing and triage notes] Were old charts reviewed (outside hosp., previous admission, EMS record, old EKG, old radiological studies, urgent care reports/EKG's, fdc records)? Report findings @ -[No old charts were reviewed] Differential Diagnosis (chest pain, altered mental status, abdominal pain women, abdominal pain men, vaginal bleeding, weakness, fever, dyspnea, syncope, headache, dizziness, GI bleed, back pain, seizure, CVA, palpatations, mental health, musculoskeletal)? @ -[Acute opioid withdrawal versus acute gastroenteritis EKG interpreted by me (3pts min.). @ -[ X-rays interpreted by me (1pt min.). @ -[None done] CT interpreted by me (1pt min.). @ -[None done] U/S interpreted by me (1pt. min.). @ -[None done] What testing was considered but not performed or refused? (CT, X-rays, U/S, labs)? Why? @ -[None] What meds were considered but not given or refused? Why? @ -[None] Did you discuss the management of the patient with other professionals (professionals i.e. , PA, GALLERY HOST, lab, RT, psych nurse, foster care social worker, sampler first, teacher, military police officer, case work aide)? Give summary @ -[No] Was smoking cessation discussed for >3mins.? @ -[No] Was critical care preformed (if so, how long)? @ -[No] Were there social determinants of health that impacted care today? How? (Homelessness, low income, unemployed, alcoholism, drug addiction, transportation, low edu. Level, literacy, decrease access to med. care, halfway, rehab)? @ -[No] Was there de-escalation of care discussed even if they declined (Discuss DNR or withdrawal of care, Hospice)? DNR status @ -[No] What co-morbidities impacted this encounter? (DM, HTN, Smoking, COPD, CAD, Cancer, CVA, ARF, Chemo, Hep., AIDS, mental health diagnosis, sleep apnea, morbid obesity)? @ -[None] Was patient admitted / discharged? Hospital course, mention meds given and route, prescriptions, significant lab abnormalities, going to OR and other pertinent info. @ -Patient is a 38-year-old woman who has missed 2 days of her methadone maintenance treatment. The patient is given a dose of methadone here. She is feeling better will have the patient follow-up with her methadone clinic Undiagnosed new problem with uncertain prognosis? @ -[No] Drug Therapy requiring intensive monitoring for toxicity (Heparin, Nitro, Insulin, Cardizem)? @ -[No] Were any procedures done? @ -[No] Diagnosis/symptom? @ -[Acute opioid withdrawal Acute, or Chronic, or Acute on Chronic? @ -[Acute Uncomplicated (without systemic symptoms) or Complicated (systemic symptoms)? @ -[Uncomplicated Side effects of treatment? @ -[No] Exacerbation, Progression, or Severe Exacerbation? @ -[No] Poses a threat to life or bodily function? How? (Chest pain, [place], [place], pneumonia, PE, COPD, DKA, ARF, appy, cholecystitis, CVA, Diverticulitis, Homicidal, Suicidal, threat to staff... and all critical care pts) @ -[No] - Lab Data Lab Results 06/10/23 Range/Units 16:59 Influenza Type A (PCR) Not Detected (Not Detectd) Influenza Type B (PCR) Not Detected (Not Detectd) RSV (PCR) Not Detected (Not Detectd) SARS-CoV-2 (PCR) Not Detected (Not Detectd) Disposition Clinical Impression: Opioid withdrawal Disposition: HOME SELF-CARE Condition: Good Instructions (If sedation given, give patient instructions): Opioid Withdrawal (ED) Is patient prescribed a controlled substance at d/c from ED?: No Referrals: Davide Kamara MD [Primary Care Provider] - 1-2 days
[2023-06-10 16:45] VITALS: TEMP 98.4
[2023-06-10] MEDS: ONDANSETRON ODT 4 MG TAB PO STA (17:01)
[2023-06-10] MEDS: METHADONE 10 MG TAB PO STA (18:25)
[2023-06-10 18:54] VITALS: BP 136/87; PULSE 78; RESP 20
== END 2023-06-10 18:36 | disposition home or self-care (01) ==
LOC: EC 15:57
DX: F11.23 Opioid dependence with withdrawal (principal); F17.200 Nicotine dependence, unspecified, uncomplicated; F15.90 Other stimulant use, unspecified, uncomplicated
CPT/HCPCS: 87636; 99284; S0109

== ENCOUNTER 2023-09-10 16:04 | Emergency (ER) | payer OTHER ==
[2023-09-10 16:18] VITALS: BP 130/91; PULSE 71; RESP 22; TEMP 97.9
--- NOTE | 2023-09-10 16:46 | ED ---
General Adult HPI - General Chief complaint: Nausea/Vomiting/Diarrhea Stated complaint: NVD Time Seen by Provider: 09/10/23 16:28 Source: patient, RN notes reviewed, old records reviewed Mode of arrival: ambulatory Limitations: no limitations - History of Present Illness Initial comments: Patient is a 38-year-old female who presents emergency department complaining of missing doses of her methadone. States that she has missed 3 days of her methadone. Typically takes 70 mg/day from [facility]. States she was having transportation issues if she does not have a ride there and depends on others. Was feeling fine until today when she began experiencing some withdrawal-like symptoms. These consisted of nausea, 1 or 2 episodes of diarrhea. Intermittent hot and cold flashes. Some generalized bodyaches as well. No abdominal pain or chest pain. No shortness of breath. Presents for further evaluation at this time. - Related Data Home Medications Medication Instructions Recorded Confirmed traMADol HCL [Tramadol HCl] 50 mg PO BID PRN 12/14/15 08/24/16 Previous Rx's Medication Instructions Recorded Phenazopyridine [Pyridium] 100 mg PO TID 3 Days day 08/24/16 Ondansetron Odt [Zofran Odt] 4 mg PO Q8HR PRN #10 tab 08/19/17 Penicillin V Potassium [Pen Vee K] 500 mg PO QID 7 Days #28 tablet 02/15/19 Hydrocodone/Acetaminophen [[place] 1 tab PO Q6HR PRN #10 tab 10/13/19 5-325] clindamycin HCL [Clindamycin HCl] 300 mg PO Q6HR 7 Days #28 cap 10/13/19 Allergies Allergy/AdvReac Type Severity Reaction Status Date / Time No Known Allergies Allergy Verified 09/10/23 16:18 Review of Systems ROS Statement: Those systems with pertinent positive or pertinent negative responses have been documented in the HPI. Review of Systems: CONST: Denies fever EYES: Denies blurry vision ENT: Denies nasal congestion C/V: Denies Chest pain RESP: Denies shortness of breath GI: Denies abdominal pain : Denies dysuria SKIN: Denies rash. MSK: Endorses mild bodyaches NEURO: Denies headache ROS Other: All systems not noted in ROS Statement are negative. Past Medical History Past Medical History: Asthma, COPD, GERD/Reflux Additional Past Medical History / Comment(s): over dose coma, respiratory arrest, aspiration into lower respiratory tract, cerebral anoxic injury, rhabdomylosis, hypotension, cardiac arrest, drug overdose, sepsis syndrome. Other HX: low back pain, constipation, emphysema, skin issues at times with rashes/boils. History of Any Multi-Drug Resistant Organisms: None Reported Past Surgical History: Section, Hysterectomy Additional Past Surgical History / Comment(s): 01/27/15 colonoscopy. Past Anesthesia/Blood Transfusion Reactions: No Reported Reaction Past Psychological History: Anxiety, Bipolar, Depression Smoking Status: Current every day smoker Past Alcohol Use History: None Reported Past Drug Use History: Methamphetamine - Past Family History Mother Family Medical History: Osteoarthritis (OA) Additional Family Medical History / Comment(s): Mother has recently had total knee replacement. General Exam - General Exam Comments Initial Comments: General: Appears in no acute distress. HEAD: Normal with no signs of head trauma. EYES: PERRLA, EOMI, conjunctiva normal, no discharge. ENT: Hearing grossly intact, normal oropharynx. Moist mucous membranes. RESPIRATORY: Clear breath sounds bilaterally. No wheezes, rales, or rhonchi. C/V: Regular rate and rhythm. S1 and S2 auscultated, no edema, peripheral pulses 2+ and intact throughout ABD: Abd is soft, nontender, nondistended EXT: Normal range of motion, no obvious deformity SKIN: No rashes or lesions observed on exposed skin. NEURO: Alert and oriented x 4. Limitations: no limitations Course Vital Signs 09/10/23 16:15 Temperature 97.9 F Pulse Rate 71 Respiratory 22 Rate Blood Pressure 130/91 O2 Sat by Pulse 99 Oximetry Medical Decision Making - Medical Decision Making Was pt. sent in by a medical professional or institution (, PA, J2EE ENGINEER, urgent care, hospital, or custodial...) When possible be specific @ -No Did you speak to anyone other than the patient for history (EMS, parent, family, police, friend...)? What history was obtained from this source @ -No Did you review nursing and triage notes (agree or disagree)? Why? @ -I reviewed and agree with nursing and triage notes Were old charts reviewed (outside hosp., previous admission, EMS record, old EKG, old radiological studies, urgent care reports/EKG's, custodial records)? Report findings @ -No old charts were reviewed Differential Diagnosis (chest pain, altered mental status, abdominal pain women, abdominal pain men, vaginal bleeding, weakness, fever, dyspnea, syncope, headache, dizziness, GI bleed, back pain, seizure, CVA, palpatations, mental health, musculoskeletal)? @ -Opiate use disorder, methadone withdrawal, nausea and vomiting. This list is not all inclusive. EKG interpreted by me (3pts min.). @ -None done X-rays interpreted by me (1pt min.). @ -None done CT interpreted by me (1pt min.). @ -None done U/S interpreted by me (1pt. min.). @ -None done What testing was considered but not performed or refused? (CT, X-rays, U/S, labs)? Why? @ -Offered obtaining basic labs and administering IV fluids but patient declines at this time. Would like to leave after medication as she believes this is likely the source of her symptoms which I agree with. What meds were considered but not given or refused? Why? @ -None Did you discuss the management of the patient with other professionals (professionals i.e. , PA, J2EE ENGINEER, lab, RT, psych nurse, nephrology social worker, deputy brand inspector, teacher, custody officer, case management social worker)? Give summary @ -No Was smoking cessation discussed for >3mins.? @ -No Was critical care preformed (if so, how long)? @ -No Were there social determinants of health that impacted care today? How? (Homelessness, low income, unemployed, alcoholism, drug addiction, transportation, low edu. Level, literacy, decrease access to med. care, long-term, rehab)? @ -No Was there de-escalation of care discussed even if they declined (Discuss DNR or withdrawal of care, Hospice)? DNR status @ -No What co-morbidities impacted this encounter? (DM, HTN, Smoking, COPD, CAD, Cancer, CVA, ARF, Chemo, Hep., AIDS, mental health diagnosis, sleep apnea, morbid obesity)? @ -None Was patient admitted / discharged? Hospital course, mention meds given and route, prescriptions, significant lab abnormalities, going to OR and other pertinent info. @ -Based on the patient's presentation and physical exam, presents for methadone withdrawal symptoms. Has missed 3 doses of her methadone. This is due to transportation issues. Believe she does have good transportation to follow-up tomorrow at [facility] for normal dosing of methadone which is 70 mg daily. Has some mild withdrawal symptoms. Vital signs currently within acceptable limits. Does not appear overly dehydrated. Exam unremarkable. I did offer starting an IV with IV fluids and medications in addition to basic labs however patient declines as she has mild symptoms at this time and would like her dose to go home. I did recommend strict return precautions. She will be given a starter pack of Zofran. Patient in agreement this plan. I will provide the patient with a prescription for ODT Zofran starter pack. I instructed the patient to follow up with their PCP in the next 1-3 days.. I explained that the patient should return to the emergency department if they experience any worsening symptoms. Strict return precautions were discussed with the patient. The patient expressed understanding of these instructions. I answered all questions that the patient had. The patient was discharged home in good condition with their prescriptions and follow up information. Undiagnosed new problem with uncertain prognosis? @ -No Drug Therapy requiring intensive monitoring for toxicity (Heparin, Nitro, Insulin, Cardizem)? @ -No Were any procedures done? @ -No Diagnosis/symptom? @ -opiate withdrawal symptoms, history of opiate use disorder,Methadone dependence, opiate withdrawals Acute, or Chronic, or Acute on Chronic? @ -Acute Uncomplicated (without systemic symptoms) or Complicated (systemic symptoms)? @ -Complicated Side effects of treatment? @ -No Exacerbation, Progression, or Severe Exacerbation? @ -No Poses a threat to life or bodily function? How? (Chest pain, [place], [place], pneumonia, PE, COPD, DKA, ARF, appy, cholecystitis, CVA, Diverticulitis, Homicidal, Suicidal, threat to staff... and all critical care pts) @ -Unlikely Disposition Clinical Impression: Methadone dependence, Opiate withdrawal Disposition: HOME SELF-CARE Condition: Good Instructions (If sedation given, give patient instructions): Opioid Withdrawal (ED) Is patient prescribed a controlled substance at d/c from ED?: No Referrals: None,Stated [Primary Care Provider] - 1-2 days Forms: Area PCPs Time of Disposition: 16:46
[2023-09-10] MEDS: METHADONE 10 MG TAB PO STA (16:47)
[2023-09-10] MEDS: ONDANSETRON 4 MG ODT STARTER PACK 2 TAB BTL PO STA (16:48)
== END 2023-09-10 16:52 | disposition home or self-care (01) ==
LOC: EC 16:04
DX: F11.23 Opioid dependence with withdrawal (principal); F17.200 Nicotine dependence, unspecified, uncomplicated
CPT/HCPCS: 99283; S0109; S0119

== ENCOUNTER 2023-10-03 15:16 | Emergency (ER) | payer OTHER ==
[2023-10-03 15:36] VITALS: RESP 18
[2023-10-03] MEDS ORDERED: ONDANSETRON ODT 4 MG TAB PO STA (15:36)
[2023-10-03] MEDS ORDERED: SODIUM CHLORIDE 0.9% 1,000 ML IV STA (15:37)
[2023-10-03] MEDS ORDERED: ONDANSETRON 4 MG/2 ML VIAL IVP STA (15:37)
--- NOTE | 2023-10-03 15:44 | ED ---
General Adult HPI - General Source: patient, RN notes reviewed Mode of arrival: ambulatory Limitations: no limitations <Anni Palencia - Last Filed: 10/03/23 15:37> - General Source: patient, RN/MD (Pharmacy), RN notes reviewed Mode of arrival: ambulatory Limitations: no limitations <Carlos Batres - Last Filed: 10/03/23 16:20> - General Chief complaint: Nausea/Vomiting/Diarrhea Stated complaint: Vomiting Time Seen by Provider: 10/03/23 15:40 - History of Present Illness Initial comments: Quick Note: This is a 38-year-old female who presents to the emergency department for methadone withdrawals. Patient is currently on 70 mg of methadone and receives this through the program at [facility]. Her last dose was 2 days ago. States that there is confusion with the transportation company and they were unable to pick her up to take her to receive her medication. She now feels like she is going through withdrawals because she has been nauseous and vomiting. She was told to come to the emergency department when going through withdrawals to receive a dose of methadone. (Anni Palencia) Patient is a 38-year-old female presenting to the emergency department with concerns for withdrawal. Patient last had her methadone 2 days ago. Patient is on methadone through [facility] secondary to history of opioid abuse. Patient states she is feeling fatigued and achy. Patient also has some nausea. Patient states she has not received it in 2 days secondary to problems with transportation. Normally patient has to go to [facility] to get methadone. (Carlos Batres) - Related Data Home Medications Medication Instructions Recorded Confirmed Methadone HCl [Methadone Intensol] 70 mg PO DAILY 10/03/23 10/03/23 Allergies Allergy/AdvReac Type Severity Reaction Status Date / Time No Known Allergies Allergy Verified 10/03/23 16:16 Review of Systems ROS Other: All systems not noted in ROS Statement are negative. <Anni Palencia - Last Filed: 10/03/23 15:37> ROS Other: All systems not noted in ROS Statement are negative. Constitutional: Reports: chills. Denies: fever Eyes: Denies: eye pain ENT: Denies: ear pain Respiratory: Denies: dyspnea Cardiovascular: Denies: chest pain Endocrine: Reports: fatigue Gastrointestinal: Reports: nausea. Denies: abdominal pain <Carlos Batres - Last Filed: 10/03/23 16:20> ROS Statement: Those systems with pertinent positive or pertinent negative responses have been documented in the HPI. Past Medical History Past Medical History: Asthma, COPD, GERD/Reflux Additional Past Medical History / Comment(s): over dose coma, respiratory arrest, aspiration into lower respiratory tract, cerebral anoxic injury, rhabdomylosis, hypotension, cardiac arrest, drug overdose, sepsis syndrome. Other HX: low back pain, constipation, emphysema, skin issues at times with rashes/boils. History of Any Multi-Drug Resistant Organisms: None Reported Past Surgical History: Section, Hysterectomy Additional Past Surgical History / Comment(s): 01/27/15 colonoscopy. Past Anesthesia/Blood Transfusion Reactions: No Reported Reaction Past Psychological History: Anxiety, Bipolar, Depression Smoking Status: Current every day smoker Past Alcohol Use History: None Reported Past Drug Use History: Methamphetamine - Past Family History Mother Family Medical History: Osteoarthritis (OA) Additional Family Medical History / Comment(s): Mother has recently had total knee replacement. <Anni Palencia - Last Filed: 10/03/23 15:37> General Exam Limitations: no limitations <Anni Palencia - Last Filed: 10/03/23 15:37> Limitations: no limitations General appearance: alert, in no apparent distress Head exam: Present: normocephalic Eye exam: Present: normal appearance Neck exam: Present: normal inspection Respiratory exam: Present: normal lung sounds bilaterally Cardiovascular Exam: Present: regular rate, normal rhythm GI/Abdominal exam: Present: soft. Absent: tenderness Extremities exam: Present: normal inspection Neurological exam: Present: alert Psychiatric exam: Present: normal affect, normal mood Skin exam: Present: normal color <Carlos Batres - Last Filed: 10/03/23 16:20> - General Exam Comments Initial Comments: Visual Physical Exam Vital signs reviewed General: Well-appearing, nontoxic, no acute distress. Head: Normocephalic, atraumatic Eyes: PERRLA, EOMI ENT: Airway patent Chest: Nonlabored breathing Skin: No visual rash, normal skin tone Neuro: Alert and oriented 3 Musculoskeletal: No gross abnormalities (Anni Plaencia) Course Vital Signs 10/03/23 15:32 Temperature 97.4 F L Pulse Rate 80 Respiratory 18 Rate Blood Pressure 121/76 O2 Sat by Pulse 98 Oximetry Medical Decision Making <Anni Palencia - Last Filed: 10/03/23 15:37> <Carlos Batres - Last Filed: 10/03/23 16:20> - Medical Decision Making I performed the QuickNote portion of this chart. Signed Anni Palencia PA-C. (Anni Palencia) Was pt. sent in by a medical professional or institution (, AMANDA, PLUMBING ASSEMBLER INSTALLER, urgent care, hospital, or [facility]...) When possible be specific @ -Patient was advised to come to the hospital from [facility] Did you speak to anyone other than the patient for history (EMS, parent, family, police, friend...)? What history was obtained from this source @ -No Did you review nursing and triage notes (agree or disagree)? Why? @ -I reviewed and agree with nursing and triage notes Were old charts reviewed (outside hosp., previous admission, EMS record, old EKG, old radiological studies, urgent care reports/EKG's, [facility] records)? Report findings @ -No old charts were reviewed Differential Diagnosis (chest pain, altered mental status, abdominal pain women, abdominal pain men, vaginal bleeding, weakness, fever, dyspnea, syncope, headache, dizziness, GI bleed, back pain, seizure, CVA, palpatations, mental health, musculoskeletal)? @ -Differential Dizziness: Benign paroxysmal positional Vertigo, Menieres disease, otitis media, acoustic neuroma, vertebrobasilar insufficiency, cerebellar stroke, encephalitis, hypovolemic, arrhythmia, coronary artery syndrome, anemia, this is not meant to be an all-inclusive list EKG interpreted by me (3pts min.). @ -As above X-rays interpreted by me (1pt min.). @ -None done CT interpreted by me (1pt min.). @ -None done U/S interpreted by me (1pt. min.). @ -None done What testing was considered but not performed or refused? (CT, X-rays, U/S, labs)? Why? @ -None What meds were considered but not given or refused? Why? @ -None Did you discuss the management of the patient with other professionals (professionals i.e. AMANDA Campos, PLUMBING ASSEMBLER INSTALLER, lab, RT, psych nurse, social worker psychiatric, sales and marketing vice president, teacher, court collections officer, bilingual patient support caseworker)? Give summary @ -I did discuss case with pharmacy who confirms patient still Was smoking cessation discussed for >3mins.? @ -No Was critical care preformed (if so, how long)? @ -No Were there social determinants of health that impacted care today? How? (Homelessness, low income, unemployed, alcoholism, drug addiction, transportation, low edu. Level, literacy, decrease access to med. care, longterm, rehab)? @ -No Was there de-escalation of care discussed even if they declined (Discuss DNR or withdrawal of care, Hospice)? DNR status @ -No What co-morbidities impacted this encounter? (DM, HTN, Smoking, COPD, CAD, Cancer, CVA, ARF, Chemo, Hep., AIDS, mental health diagnosis, sleep apnea, morbid obesity)? @ -History of opioid abuse Was patient admitted / discharged? Hospital course, mention meds given and route, prescriptions, significant lab abnormalities, going to OR and other pertinent info. @ -Patient presents missing methadone dose and concern for withdrawal. Patient will be provided a dose and discharged Undiagnosed new problem with uncertain prognosis? @ -No Drug Therapy requiring intensive monitoring for toxicity (Heparin, Nitro, Insulin, Cardizem)? @ -No Were any procedures done? @ -No Diagnosis/symptom? @ -Medication withdrawal Acute, or Chronic, or Acute on Chronic? @ -Acute Uncomplicated (without systemic symptoms) or Complicated (systemic symptoms)? @ -Default Side effects of treatment? @ -No Exacerbation, Progression, or Severe Exacerbation? @ -No Poses a threat to life or bodily function? How? (Chest pain, USA, VT, pneumonia, PE, COPD, DKA, ARF, appy, cholecystitis, CVA, Diverticulitis, Homicidal, Suicidal, threat to staff... and all critical care pts) @ -No (Carlos Batres) Disposition <Anni Palencia - Last Filed: 10/03/23 15:37> Is patient prescribed a controlled substance at d/c from ED?: No Time of Disposition: 16:20 <Carlos Batres - Last Filed: 10/03/23 16:20> Clinical Impression: Medication withdrawal, Methadone dependence Disposition: HOME SELF-CARE Condition: Stable Instructions (If sedation given, give patient instructions): Acute Nausea and Vomiting (ED), Opioid Withdrawal (ED) Additional Instructions: Please follow-up with [facility] regarding your dosing and further doses of methadone. Return for fevers, uncontrolled vomiting, worsening or changing symptoms or other concerns. Please also follow-up with primary care physician in the next day or 2. Referrals: Davide Kamara MD [Primary Care Provider] - 1-2 days
[2023-10-03] MEDS: ONDANSETRON ODT 4 MG TAB PO STA (15:57)
[2023-10-03] MEDS: METHADONE 10 MG TAB PO STA (16:20)
[2023-10-03 16:55] VITALS: BP 120/79; PULSE 81; TEMP 97.7
== END 2023-10-03 16:55 | disposition home or self-care (01) ==
LOC: EC 15:16
DX: F11.20 Opioid dependence, uncomplicated (principal); F17.200 Nicotine dependence, unspecified, uncomplicated
CPT/HCPCS: 99283; S0109

== ENCOUNTER 2023-11-12 09:51 | Emergency (ER) | payer OTHER ==
[2023-11-12 09:56] VITALS: BP 117/82; PULSE 86; RESP 16; TEMP 98.1
--- NOTE | 2023-11-12 10:20 | ED ---
General Adult HPI - General Chief complaint: Recheck/Abnormal Lab/Rx Stated complaint: Missed medication Time Seen by Provider: 11/12/23 10:03 Source: patient, RN notes reviewed Mode of arrival: wheelchair Limitations: no limitations - History of Present Illness Initial comments: Patient is a 38-year-old female presenting to the emergency department with concerns with missing her methadone medication. Patient states she takes this daily at [facility] however there has been disruption in her transportation. Patient last received a dose on . Patient started having symptoms on Monday, 2 days ago. Patient is feeling irritated and anxious and he has nausea. Patient feels she is going through some withdrawal. Patient requests a dose of her methadone. Patient states she will establish a ride going forward. - Related Data Home Medications Medication Instructions Recorded Confirmed Methadone HCl [Methadone Intensol] 70 mg PO DAILY 10/03/23 10/03/23 Allergies Allergy/AdvReac Type Severity Reaction Status Date / Time No Known Allergies Allergy Verified 11/12/23 09:56 Review of Systems ROS Statement: Those systems with pertinent positive or pertinent negative responses have been documented in the HPI. ROS Other: All systems not noted in ROS Statement are negative. Constitutional: Denies: fever Eyes: Denies: eye pain ENT: Denies: ear pain Respiratory: Denies: cough Cardiovascular: Denies: chest pain Endocrine: Reports: fatigue Gastrointestinal: Reports: nausea. Denies: abdominal pain, vomiting Genitourinary: Denies: dysuria Musculoskeletal: Reports: back pain (Chronic pain) Past Medical History Past Medical History: Asthma, COPD, GERD/Reflux Additional Past Medical History / Comment(s): over dose coma, respiratory arrest, aspiration into lower respiratory tract, cerebral anoxic injury, rhabdomylosis, hypotension, cardiac arrest, drug overdose, sepsis syndrome. Other HX: low back pain, constipation, emphysema, skin issues at times with rashes/boils. History of Any Multi-Drug Resistant Organisms: None Reported Past Surgical History: Section, Hysterectomy Additional Past Surgical History / Comment(s): 01/27/15 colonoscopy. Past Anesthesia/Blood Transfusion Reactions: No Reported Reaction Past Psychological History: Anxiety, Bipolar, Depression Smoking Status: Current every day smoker Past Alcohol Use History: None Reported Past Drug Use History: Methamphetamine - Past Family History Mother Family Medical History: Osteoarthritis (OA) Additional Family Medical History / Comment(s): Mother has recently had total knee replacement. General Exam Limitations: no limitations General appearance: alert, in no apparent distress Head exam: Present: normocephalic Eye exam: Present: normal appearance Neck exam: Present: normal inspection Respiratory exam: Present: normal lung sounds bilaterally Cardiovascular Exam: Present: regular rate, normal rhythm GI/Abdominal exam: Present: soft. Absent: tenderness Extremities exam: Present: normal inspection Neurological exam: Present: alert Psychiatric exam: Present: normal affect, normal mood Skin exam: Present: normal color Course Vital Signs 11/12/23 09:53 Temperature 98.1 F Pulse Rate 86 Respiratory 16 Rate Blood Pressure 117/82 O2 Sat by Pulse 99 Oximetry Medical Decision Making - Medical Decision Making Was pt. sent in by a medical professional or institution (, PA, FUNERAL DIRECTOR, urgent care, hospital, or skilled nursing...) When possible be specific @ -No Did you speak to anyone other than the patient for history (EMS, parent, family, police, friend...)? What history was obtained from this source @ -No Did you review nursing and triage notes (agree or disagree)? Why? @ -I reviewed and agree with nursing and triage notes Were old charts reviewed (outside hosp., previous admission, EMS record, old EKG, old radiological studies, urgent care reports/EKG's, skilled nursing records)? Report findings @ -No old charts were reviewed Differential Diagnosis (chest pain, altered mental status, abdominal pain women, abdominal pain men, vaginal bleeding, weakness, fever, dyspnea, syncope, headache, dizziness, GI bleed, back pain, seizure, CVA, palpatations, mental health, musculoskeletal)? @ -Differential Weakness: Hypoglycemia, shock, sepsis, hyponatremia, anemia, infection, MS, ETOH, adverse medicine reaction, overdose, stroke, this is not meant to be an all-inclusive list. EKG interpreted by me (3pts min.). @ -As above X-rays interpreted by me (1pt min.). @ -None done CT interpreted by me (1pt min.). @ -None done U/S interpreted by me (1pt. min.). @ -None done What testing was considered but not performed or refused? (CT, X-rays, U/S, labs)? Why? @ -None What meds were considered but not given or refused? Why? @ -Patient will be provided a dose of methadone. Patient states she is takes 70 mg daily Did you discuss the management of the patient with other professionals (professionals i.e. , PA, FUNERAL DIRECTOR, lab, RT, psych nurse, social worker health services, customer service manager, teacher, penal officer, case filler)? Give summary @ -No Was smoking cessation discussed for >3mins.? @ -No Was critical care preformed (if so, how long)? @ -No Were there social determinants of health that impacted care today? How? (Homelessness, low income, unemployed, alcoholism, drug addiction, transportation, low edu. Level, literacy, decrease access to med. care, prison, rehab)? @ -No Was there de-escalation of care discussed even if they declined (Discuss DNR or withdrawal of care, Hospice)? DNR status @ -No What co-morbidities impacted this encounter? (DM, HTN, Smoking, COPD, CAD, Cancer, CVA, ARF, Chemo, Hep., AIDS, mental health diagnosis, sleep apnea, morbid obesity)? @ -History of chronic methadone use Was patient admitted / discharged? Hospital course, mention meds given and route, prescriptions, significant lab abnormalities, going to OR and other pertinent info. @ -Patient presents following missing a dose of her methadone. Patient will be given a single dose and recommended follow-up Undiagnosed new problem with uncertain prognosis? @ -No Drug Therapy requiring intensive monitoring for toxicity (Heparin, Nitro, Insulin, Cardizem)? @ -No Were any procedures done? @ -No Diagnosis/symptom? @ -Chronic pain, missed medication dose Acute, or Chronic, or Acute on Chronic? @ -Chronic, acute Uncomplicated (without systemic symptoms) or Complicated (systemic symptoms)? @ -Complicated with mild withdrawal symptoms Side effects of treatment? @ -No Exacerbation, Progression, or Severe Exacerbation? @ -No Poses a threat to life or bodily function? How? (Chest pain, USA, MS, pneumonia, PE, COPD, DKA, ARF, appy, cholecystitis, CVA, Diverticulitis, Homicidal, Suicidal, threat to staff... and all critical care pts) @ -No Disposition Clinical Impression: Chronic pain, Medication dose missed Disposition: HOME SELF-CARE Condition: Stable Instructions (If sedation given, give patient instructions): Methadone (By mouth) Additional Instructions: Please follow-up with methadone clinic tomorrow. Please follow-up with your [facility] physician in the next 1 to 2 days for recheck. Return for uncontrolled vomiting, fever, shaking, illness, worsening symptoms or other concerns Is patient prescribed a controlled substance at d/c from ED?: No Referrals: Davide Kamara MD [Primary Care Provider] - 1-2 days Time of Disposition: 10:20
[2023-11-12] MEDS: ONDANSETRON ODT 4 MG TAB PO STA (10:21)
[2023-11-12] MEDS ORDERED: METHADONE 10 MG TAB ONE (10:27)
[2023-11-12] MEDS: METHADONE 10 MG TAB PO STA (10:28)
== END 2023-11-12 10:36 | disposition home or self-care (01) ==
LOC: EC 09:51
CPT/HCPCS: 99282

== ENCOUNTER 2023-11-20 09:25 | Emergency (ER) | payer OTHER ==
[2023-11-20 09:31] VITALS: TEMP 97.8
--- NOTE | 2023-11-20 10:19 | ED ---
SOB HPI - General Chief Complaint: Shortness of Breath Stated Complaint: SOB Time Seen by Provider: 11/20/23 10:16 Source: patient, RN notes reviewed Mode of arrival: wheelchair Limitations: no limitations - History of Present Illness Initial Comments: 38-year-old female presented to ER with a chief complaint shortness of breath. Patient currently is taking methadone due to opioid withdrawal. She states she missed her last dose on Monday due to work and forgot it was a holiday weekend. Last night she started to experience a cough and shortness of breath. She states she used her albuterol inhaler and took mucinex with no relief. Patient reports she feels "unwell". She states it feels like she is withdrawing. Patient denies any fevers, chest pain, abdominal pain or peripheral edema. She does report recent diarrhea but denies any hematochezia or melena. Denies any nausea vomiting. No other acute complaints. - Related Data Home Medications Medication Instructions Recorded Confirmed Methadone HCl [Methadone Intensol] 70 mg PO DAILY 10/03/23 10/03/23 Previous Rx's Medication Instructions Recorded methylPREDNISolone [Medrol Dose 0 mg PO DIRECTED #1 packet 11/20/23 Pack] Allergies Allergy/AdvReac Type Severity Reaction Status Date / Time No Known Allergies Allergy Verified 11/20/23 09:31 Review of Systems ROS Statement: Those systems with pertinent positive or pertinent negative responses have been documented in the HPI. ROS Other: All systems not noted in ROS Statement are negative. Past Medical History Past Medical History: Asthma, COPD, GERD/Reflux Additional Past Medical History / Comment(s): over dose coma, respiratory arrest, aspiration into lower respiratory tract, cerebral anoxic injury, rhabdomylosis, hypotension, cardiac arrest, drug overdose, sepsis syndrome. Other HX: low back pain, constipation, emphysema, skin issues at times with rashes/boils. History of Any Multi-Drug Resistant Organisms: None Reported Past Surgical History: Section, Hysterectomy Additional Past Surgical History / Comment(s): 01/27/15 colonoscopy. Past Anesthesia/Blood Transfusion Reactions: No Reported Reaction Past Psychological History: Anxiety, Bipolar, Depression Smoking Status: Former smoker Past Alcohol Use History: None Reported Past Drug Use History: Methamphetamine - Past Family History Mother Family Medical History: Osteoarthritis (OA) Additional Family Medical History / Comment(s): Mother has recently had total knee replacement. General Exam Limitations: no limitations General appearance: alert, in no apparent distress ENT exam: Present: normal oropharynx, mucous membranes moist, TM's normal bilaterally Respiratory exam: Present: wheezes (Bilaterally) Cardiovascular Exam: Present: regular rate, normal rhythm, normal heart sounds. Absent: systolic murmur, diastolic murmur, rubs, gallop, clicks GI/Abdominal exam: Present: soft, normal bowel sounds. Absent: distended, tenderness, guarding, rebound, rigid Extremities exam: Present: normal inspection, full ROM, normal capillary refill. Absent: tenderness, pedal edema, joint swelling, calf tenderness Neurological exam: Present: alert, oriented X3, CN II-XII intact Skin exam: Present: warm, dry, intact, normal color. Absent: rash Course Vital Signs 11/20/23 11/20/23 11/20/23 09:27 09:31 10:00 Temperature 97.8 F Pulse Rate 72 100 Respiratory 24 36 H 36 H Rate Blood Pressure 125/78 140/86 O2 Sat by Pulse 99 98 Oximetry 11/20/23 11/20/23 11/20/23 11:31 11:42 13:12 Temperature Pulse Rate 87 86 73 Respiratory 18 Rate Blood Pressure 122/85 O2 Sat by Pulse 96 Oximetry 11/20/23 11/20/23 11/20/23 14:18 14:27 14:45 Temperature Pulse Rate 75 78 74 Respiratory 18 Rate Blood Pressure 111/85 O2 Sat by Pulse 95 Oximetry - Reevaluation(s) Reevaluation #1: 11/20/23 12:13 Patient reevaluated no signs of acute distress. Improvement of bilateral wheezing in all lung kaufman. Medical Decision Making - Medical Decision Making Was pt. sent in by a medical professional or institution (, PA, [employer], urgent care, hospital, or care home...) When possible be specific @ -No Did you speak to anyone other than the patient for history (EMS, parent, family, police, friend...)? What history was obtained from this source @ -No Did you review nursing and triage notes (agree or disagree)? Why? @ -I reviewed and agree with nursing and triage notes Were old charts reviewed (outside hosp., previous admission, EMS record, old EKG, old radiological studies, urgent care reports/EKG's, care home records)? Report findings @ -No old charts were reviewed Differential Diagnosis (chest pain, altered mental status, abdominal pain women, abdominal pain men, vaginal bleeding, weakness, fever, dyspnea, syncope, headache, dizziness, GI bleed, back pain, seizure, CVA, palpatations, mental health, musculoskeletal)? @ -Differential Dyspnea:Coronary syndrome, arrhythmia, tamponade, asthma, COPD, pulmonary embolism, pneumonia, pneumothorax, pulmonary effusion, anaphylaxis, diabetic ketoacidosis, flailed chest, pulmonary contusion, diaphragmatic rupture, anemia, neuromuscular, this is not meant to be an all-inclusive list. EKG interpreted by me (3pts min.). @ -As above X-rays interpreted by me (1pt min.). @ -Chest x-ray interpreted by me showing no focal consolidations, pneumothorax or pleural effusion. CT interpreted by me (1pt min.). @ -None done U/S interpreted by me (1pt. min.). @ -None done What testing was considered but not performed or refused? (CT, X-rays, U/S, labs)? Why? @ -None What meds were considered but not given or refused? Why? @ -None Did you discuss the management of the patient with other professionals (professionals i.e. , PA, [employer], lab, RT, psych nurse, geriatric social worker, turbo operator, teacher, parcel post officer, behavioral health case manager)? Give summary @ -No Was smoking cessation discussed for >3mins.? @ -No Was critical care preformed (if so, how long)? @ -No Were there social determinants of health that impacted care today? How? (Homelessness, low income, unemployed, alcoholism, drug addiction, transportation, low edu. Level, literacy, decrease access to med. care, snf, rehab)? @ -No Was there de-escalation of care discussed even if they declined (Discuss DNR or withdrawal of care, Hospice)? DNR status @ -No What co-morbidities impacted this encounter? (DM, HTN, Smoking, COPD, CAD, Cancer, CVA, ARF, Chemo, Hep., AIDS, mental health diagnosis, sleep apnea, morbid obesity)? @ -Methadone use, asthma Was patient admitted / discharged? Hospital course, mention meds given and route , prescriptions, significant lab abnormalities, going to OR and other pertinent info. @ -Discharge. 38-year-old female presented to the ER with a chief complaint of shortness of breath. History and physical exam completed. Vitals within normal limits. Patient in no signs of acute distress on examination. Exam remarkable for extensive wheezing in all lung kaufman. Viral swabs negative. Chest x-ray interpreted by me negative for focal consolidations, pneumothorax or pleural effusion. CBC and CMP ordered. CBC unremarkable. CMP hemolyzed and patient refused redraw as she is a "hard stick". Patient received 2 DuoNeb treatments with improvement of bilateral wheezing. Upon reevaluation, patient resting comfortably in exam room. Patient reporting improvement of shortness of breath but stating that she is feeling unwell. Patient's unwell feeling believed to be due to opioid withdrawal. I do believe patient is having the asthma exacerbation on top of this. She will be prescribed a Medrol Dosepak. I advised patient to follow-up closely with methadone clinic and primary care physician for further evaluation. Strict return parameters discussed. Patient verbally expressed understanding and agreed with care plan. Case discussed with ED attending, Dr. Fountain. Undiagnosed new problem with uncertain prognosis? @ -No Drug Therapy requiring intensive monitoring for toxicity (Heparin, Nitro, Insulin, Cardizem)? @ -No Were any procedures done? @ -No Diagnosis/symptom? @ -Opioid withdrawal/asthma exacerbation Acute, or Chronic, or Acute on Chronic? @ -Acute Uncomplicated (without systemic symptoms) or Complicated (systemic symptoms)? @ -Complicated Side effects of treatment? @ -No Exacerbation, Progression, or Severe Exacerbation? @ -Exacerbation Poses a threat to life or bodily function? How? (Chest pain, [place], [place], pneumonia, PE, COPD, DKA, ARF, appy, cholecystitis, CVA, Diverticulitis, Homicidal, Suicidal, threat to staff... and all critical care pts) @ -No - Lab Data Result diagrams: 11/20/23 10:20 Lab Results 11/20/23 11/20/23 Range/Units 10:20 10:20 WBC 9.7 (3.8-10.6) k/uL RBC 4.57 (3.80-5.40) m/uL Hgb 13.6 (11.4-16.0) gm/dL Hct 42.4 (34.0-46.0) % MCV 92.7 (80.0-100.0) fL MCH 29.7 (25.0-35.0) pg MCHC 32.1 (31.0-37.0) g/dL RDW 12.7 (11.5-15.5) % Plt Count 270 (150-450) k/uL MPV 8.3 Neutrophils % 70 % Lymphocytes % 21 % Monocytes % 6 % Eosinophils % 1 % Basophils % 0 % Neutrophils # 6.8 (1.3-7.7) k/uL Lymphocytes # 2.0 (1.0-4.8) k/uL Monocytes # 0.6 (0-1.0) k/uL Eosinophils # 0.1 (0-0.7) k/uL Basophils # 0.0 (0-0.2) k/uL Influenza Type A (PCR) Not Detected (Not Detectd) Influenza Type B (PCR) Not Detected (Not Detectd) RSV (PCR) Not Detected (Not Detectd) SARS-CoV-2 (PCR) Not Detected (Not Detectd) - EKG Data -: EKG Interpreted by Me EKG Comments: EKG taken at 9: 40 showing a sinus rhythm with sinus arrhythmia. Artifact present. No acute ST segment or T wave abnormalities. Ventricular rate 82, HI interval 138, QRS duration 95, QT/QTc 359/397. - Radiology Data Radiology results: report reviewed, image reviewed Disposition Clinical Impression: Opioid withdrawal, Asthma exacerbation Disposition: HOME SELF-CARE Condition: Stable Instructions (If sedation given, give patient instructions): Asthma (ED) Additional Instructions: Please follow-up with PCP and methadone clinic. Return to the ER for any new or worsening concerns. Prescriptions: methylPREDNISolone [Medrol Dose Pack] 0 mg PO DIRECTED #1 packet Is patient prescribed a controlled substance at d/c from ED?: No Referrals: Davide Kamara MD [Primary Care Provider] - 1-2 days Time of Disposition: 14:33
[2023-11-20 10:32] LABS: Basophils % (A) 0 %; Eosinophils # (A) 0.1 k/uL (0-0.7); Eosinophils % (A) 1 %; HCT 42.4 % (34.0-46.0); HGB 13.6 gm/dL (11.4-16.0); Lymphocytes % (A) 21 %; MCH 29.7 pg (25.0-35.0); MCHC 32.1 g/dL (31.0-37.0); MCV 92.7 fL (80.0-100.0); Mean Platelet Volume 8.3; Monocytes # (A) 0.6 k/uL (0-1.0); Monocytes % (A) 6 %; Neutrophils # (A) 6.8 k/uL (1.3-7.7); Neutrophils % (A) 70 %; Platelet Count 270 k/uL (150-450); RBC 4.57 m/uL (3.80-5.40); RDW 12.7 % (11.5-15.5); WBC 9.7 k/uL (3.8-10.6)
--- NOTE | 2023-11-20 10:43 | XR ---
EXAMINATION TYPE: XR chest 2V DATE OF EXAM: 11/20/2023 COMPARISON: 12/16/2015 HISTORY: Abnormal breath sounds, wheezing TECHNIQUE: Frontal and lateral views of the chest are obtained. FINDINGS: There is no focal air space opacity, pleural effusion, or pneumothorax seen. The cardiac silhouette size is within normal limits. The osseous structures are intact. IMPRESSION: No acute cardiopulmonary process.
[2023-11-20] MEDS: IPRATROPIUM-ALBUTEROL 3 ML NEB INHALATION STA ×2 (11:31→14:17)
[2023-11-20 13:13] VITALS: RESP 18
[2023-11-20 14:46] VITALS: BP 111/85; PULSE 74
== END 2023-11-20 14:46 | disposition home or self-care (01) ==
LOC: EC 09:25
CPT/HCPCS: 36415; 71046; 85025; 87636; 93005; 94640; 99285